=== PATIENT | male | born 1970 | race Caucasian/White ===

== ENCOUNTER 2017-04-07 19:41 | Emergency (ER) | payer OTHER ==
[~2017-04-07] VITALS: Ht 193 cm; Wt 165.1 kg
[~2017-04-07 19:41] MED LIST: BENICAR20 MG PO; FLAGYL250 MG PO; INDOMETHACIN50 MG PO; NO HOME MEDS; Z.0.ADIPEX-P37.5 M1 PO
[2017-04-07] MEDS ORDERED: SODIUM CHLORIDE FLUSH 10 ML SYR INJ PRN (21:00)
[2017-04-07] MEDS ORDERED: DIATRIZOATE MEGL/DIATRIZOA SOD 30 ML BTL PO ONE (21:08)
[2017-04-07 22:32] LABS: BILIRUBIN,URINE NEGATIVE (NEGATIVE); KETONES,URINE NEGATIVE (NEGATIVE); LEUKOCYTE ESTERASE ,URINE 1+ (NEGATIVE); NITRITE,URINE NEGATIVE (NEGATIVE); PROTEIN,URINE DIPSTICK NEGATIVE (NEGATIVE); URINE UROBILINOGEN 0.2 mg/dL (0.2 - 1)
[2017-04-07 22:34] LABS: CLARITY,URINE CLEAR (CLEAR); COLOR,URINE YELLOW (YELLOW)
[2017-04-07 22:48] LABS: BASOPHILS # (AUTO) 0.1 (0.0-0.1); BASOPHILS % 0.7 % (0.0-1.0); EOSINOPHILS # (AUTO) 0.4 (0.0-0.4); EOSINOPHILS % 3.3 % (0.0-6.0); HEMATOCRIT 50.7 % (38.2-49.6); HEMOGLOBIN 16.7 g/dL (14.0-18.0); LYMPHOCYTES # (AUTO) 1.8 (1.0-3.2); LYMPHOCYTES % 17.4 % (18.0-39.1); MEAN CORPUSCULAR HEMOGLOBIN 28.5 pg (28-32); MEAN CORPUSCULAR HGB CONC 32.9 g/dL (31-35); MEAN CORPUSCULAR VOLUME 86.7 fL (81-99); MONOCYTES # (AUTO) 0.7 (0.2-0.8); MONOCYTES % 6.8 % (4.4-11.3); NEUTROPHILS # (AUTO) 7.6 (2.1-6.9); NEUTROPHILS % 71.6 % (38.7-80.0); PLATELET COUNT 333 x10e3/uL (140-360); RED BLOOD COUNT 5.85 x10e6/uL (4.3-5.7); RED CELL DISTRIBUTION WIDTH 12.9 % (11.7-14.4)
[2017-04-07 23:01] LABS: RBC,URINE 0-5 /HPF (0-5)
[2017-04-07 23:02] LABS: EPITHELIAL CELLS,URINE RARE /LPF
[2017-04-07 23:05] LABS: ALBUMIN 3.9 g/dL (3.5-5.0); ALBUMIN/GLOBULIN RATIO 0.9 (0.8-2.0); CREATININE, SERUM 1.39 mg/dL (0.72-1.25)
--- NOTE | 2017-04-08 00:58 | Diagnostic Imaging Report ---
EXAM: CT Abdomen and Pelvis WITH contrast INDICATION: Abdominal pain, diverticulitis COMPARISON: 02/26/2017 and 09/14/2013 TECHNIQUE: Abdomen and pelvis were scanned utilizing a multidetector helical scanner from the lung base to the pubic symphysis after administration of IV contrast. Coronal and sagittal reformations were obtained. Routine protocol was performed. Scan was performed when during portal venous phase. IV CONTRAST: 100 mL of Isovue-300 ORAL CONTRAST: Gastrografin RADIATION DOSE: Total DLP: 1431.09 mGy*cm Estimated effective dose: (DLP x 0.015 x size factor) mSv COMPLICATIONS: None FINDINGS: LINES and TUBES: None. LOWER THORAX: Unremarkable HEPATOBILIARY: No focal hepatic lesions. No biliary ductal dilation. GALLBLADDER: There is layering sludge in the gallbladder No wall thickening. SPLEEN: No splenomegaly. PANCREAS: No focal masses or ductal dilatation. ADRENALS: No adrenal nodules KIDNEYS/URETERS: Kidneys enhance symmetrically. No hydronephrosis. No cystic or solid mass lesions. Multiple bilateral calcific densities in the renal collecting systems, consistent with nephrolithiasis. The largest stone in the right renal collecting system is in the upper pole measuring 1.1 cm in diameter. The largest stone in the left renal collecting system is in the upper pole measuring 0.4 cm. GI TRACT: No abnormal distention, wall thickening, or evidence of bowel obstruction. There are diverticula within the colon without evidence of diverticulitis. Appendix is normal. PELVIC ORGANS/BLADDER: Unremarkable. LYMPH NODES: No lymphadenopathy. VESSELS: There is mild atherosclerotic disease in the aorta and major arterial branches. PERITONEUM / RETROPERITONEUM: No free air or fluid. BONES: There are degenerative changes in the lumbar spine. SOFT TISSUES: Unremarkable. IMPRESSION: 1. Bilateral nonobstructing nephrolithiasis without hydronephrosis, stable when compared with prior examination. 2. Diverticulosis without evidence of diverticulitis. Signed by: Dr. Gorge Paz M.D. on 04/08/2017 12:54 AM
[2017-04-08] MEDS ORDERED: IOPAMIDOL 370 MG/ML 200 ML INFUS..BTL INJ ONE (01:33)
[2017-04-08] MEDS ORDERED: SODIUM CHLORIDE 0.9% 50ML 50 ML ONE (01:33)
== END 2017-04-08 01:23 | disposition home or self-care (01) ==
LOC: ER 19:41
DX: R10.32 Left lower quadrant pain (principal); R11.0 Nausea; K57.31 Diverticulosis of large intestine without perforation or abscess with bleeding; M10.062 Idiopathic gout, left knee; I10 Essential (primary) hypertension
CPT/HCPCS: 36415; 74177; 80053; 81001; 82150; 83690; 85025; 93005; 99284; Q9967

== ENCOUNTER 2017-06-03 09:35 | Emergency (ER) | payer OTHER ==
[~2017-06-03] VITALS: Ht 193 cm; Wt 165.1 kg
--- OUTSIDE RECORDS SUMMARY | 2017-06-03 09:38 | XMS REPORT ---
Author Author [facility] Address Unknown Phone Unavailable Care Team Providers Care Server Security Administrator Name Role Phone POLANCOADELA ARZATE Unavailable Unavailable MÓNICA SERRANO Unavailable Unavailable Problems This patient has no known problems. Allergies, Adverse Reactions, Alerts This patient has no known allergies or adverse reactions. Medications This patient has no known medications. Results Test Description Test Time Test Comments Text Results Atomic Results Result Comments CT ABDOMEN/PELVIS W [place] [address] Patient Name: CARLOS FARMER MR #: [id number] : 1970 Age/Sex: 47/M Req #: [id number] Adm Physician: Ordered by: ROSA GRANDA Report #: [id number] Location: ER Room/Bed: Procedure: [id number] CT/CT ABDOMEN/PELVIS W Exam Date: 04/08/17 Exam Time: 2355 REPORT STATUS: Signed EXAM: CT Abdomen and Pelvis WITH contrast INDICATION: Abdominal pain, diverticulitis COMPARISON: 02/26/2017 and 09/14/2013 TECHNIQUE: Abdomen and pelvis were scanned utilizing a multidetector helical scanner from the lung base to the pubic symphysis after administration of IV contrast. Coronal and sagittal reformations were obtained. Routine protocol was performed. Scan was performed when during portal venous phase. IV CONTRAST: 100 mL of Isovue-300 ORAL CONTRAST: Gastrografin RADIATION DOSE: Total DLP: 1431.09 mGy*cm Estimated effective dose: (DLP x 0.015 x size factor) mSv COMPLICATIONS: None FINDINGS: LINES and TUBES: None. LOWER THORAX: Unremarkable HEPATOBILIARY: No focal hepatic lesions. No biliary ductal dilation. GALLBLADDER: There is layering sludge in the gallbladder No wall thickening. SPLEEN: No splenomegaly. PANCREAS: No focal masses or ductal dilatation. ADRENALS: No adrenal nodules KIDNEYS/URETERS: Kidneys enhance symmetrically. No hydronephrosis. No cystic or solid mass lesions. Multiple bilateral calcific densities in the renal collecting systems, consistent with nephrolithiasis. The largest stone in the right renal collecting system is in the upper pole measuring 1.1 cm in diameter. The largest stone in the left renal collecting system is in the upper pole measuring 0.4 cm. GI TRACT: No abnormal distention, wall thickening, or evidence of bowel obstruction. There are diverticula within the colon without evidence of diverticulitis. Appendix is normal. PELVIC ORGANS/BLADDER: Unremarkable. LYMPH NODES: No lymphadenopathy. VESSELS: There is mild atherosclerotic disease in the aorta and major arterial branches. PERITONEUM / RETROPERITONEUM: No free air or fluid. BONES: There are degenerative changes in the lumbar spine. SOFT TISSUES: Unremarkable. IMPRESSION: 1. Bilateral nonobstructing nephrolithiasis without hydronephrosis, stable when compared with prior examination. 2. Diverticulosis without evidence of diverticulitis. Signed by: Dr. Gorge Paz M.D. on 04/08/2017 12:54 AM Dictated By: GORGE DALY MD Transcribed By: GEN on 04/08/1753 COPY TO: ROSA GRANDA CT ABDOMEN/PELVIS [place] [address] Patient Name: CARLOS FARMER MR #: [id number] : 1970 Age/Sex: 47/M Req #: [id number] Adm Physician: Ordered by: MÓNICA SERRANO MD Report # : [id number] Location: ER Room/Bed: Procedure: [id number] CT/CT ABDOMEN/PELVIS WO Exam Date: 02/26/17 Exam Time: 09 REPORT STATUS: Signed PROCEDURE: CT ABDOMEN AND PELVIS WITHOUT CONTRAST TECHNIQUE: The abdomen and pelvis were scanned utilizing a multidetector helical scanner from the diaphragm to the lesser trochanter after the oral administration of water. No intravenous contrast was administered per renal stone protocol. Coronal and sagittal multiplanar reformations were obtained. COMPARISON: 09/14/2013 INDICATIONS: LEFT FLANK/GROIN PAIN FINDINGS: ABSENCE OF INTRAVENOUS CONTRAST DECREASES SENSITIVITY FOR DETECTION OF FOCAL LESIONS AND VASCULAR PATHOLOGY. LOWER THORAX: Normal. HEPATOBILIARY: No focal hepatic lesion or intrahepatic biliary ductal dilatation. Gallbladder is unremarkable. SPLEEN : No splenomegaly. Small splenule in the inferior aspect of the splenic hilum. PANCREAS: No focal masses or ductal dilatation. ADRENALS: No adrenal nodules. KIDNEYS/URETERS: Progression of renal stone burden relative to 09/14/2013. A large nonobstructing right upper pole calculus measures 10 mm, previously 6 mm. New punctate nonobstructing interpolar right renal calculus is seen on series 3 image 76. Interval increase in size of nonobstructing right lower pole renal calculus, now 7 mm, previously 4 mm. Multiple new nonobstructing left renal calculi measure 4 mm in the upper pole seen on series 3 image 67, 3 mm in the upper pole seen on series 3 image 70, 5 mm in the lower pole seen on series 3 image 85, and 5 mm in the lower pole seen on series 3 image 88. No hydronephrosis. No ureteral or bladder calculi. No perinephric inflammation. PELVIC ORGANS/BLADDER: The urinary bladder is incompletely distended. Coarse prostatic calcifications are again noted. PERITONEUM / RETROPERITONEUM: No ascites. No pneumoperitoneum. LYMPH NODES: No pelvic sidewall, retroperitoneal, or mesenteric lymphadenopathy. VESSELS: Limited evaluation in the absence of intravenous contrast. The abdominal aorta is non-aneurysmal. GI TRACT: The large bowel is notable for multiple diverticula along the descending and sigmoid colon. There is a short segment focus of wall thickening and mesocolic inflammatory change involving an approximately 5 cm segment of the distal descending colon. No nato perforation or drainable fluid collection. Diverticula are noted to a lesser degree along the ascending and transverse colon. The appendix is normal. There is no small bowel dilatation to suggest obstruction. BONES AND SOFT TISSUES: No focal soft tissue abnormalities, though evaluation is somewhat limited secondary to beam hardening artifact from multiple patient contact points with the gantry. No osseous destructive lesions. Mild multilevel degenerative disc changes and facet arthropathy of the lumbar spine. IMPRESSION: Short segment diverticulitis involving the distal descending/proximal sigmoid colon, without nato perforation or drainable fluid collection. Bilateral nonobstructing renal calculi measuring up 1 cm, progressed relative to the examination from August 2013. Dictated by: Dale Her M.D. on 02/26/2017 at 9:51 Electronically approved by: Dale Her M.D. on 02/26/2017 at 9: 51 Dictated By: DALE HER MD [id number] Transcribed By: JS on 02/26/17 0951 COPY TO: MÓNICA SERRANO MD
[2017-06-03] MEDS ORDERED: KETOROLAC TROMETHAMINE 30 MG/ML VIAL IV STA (10:49)
[2017-06-03] MEDS ORDERED: SODIUM CHLORIDE 0.9% 1000ML 1,000 ML IV STA (10:49)
[2017-06-03] MEDS ORDERED: HYDROMORPHONE 1MG/1ML INJ IV STA (10:49)
[2017-06-03] MEDS ORDERED: ONDANSETRON HCL INJ 2 MG/ML VIAL IV STA (10:49)
[2017-06-03 11:05] LABS: BILIRUBIN,URINE NEGATIVE (NEGATIVE); KETONES,URINE NEGATIVE (NEGATIVE); LEUKOCYTE ESTERASE ,URINE NEGATIVE (NEGATIVE); NITRITE,URINE NEGATIVE (NEGATIVE); PROTEIN,URINE DIPSTICK NEGATIVE (NEGATIVE); URINE UROBILINOGEN 0.2 mg/dL (0.2 - 1)
[2017-06-03 11:22] LABS: BASOPHILS # (AUTO) 0.1 (0.0-0.1); BASOPHILS % 0.7 % (0.0-1.0); EOSINOPHILS # (AUTO) 0.6 (0.0-0.4); EOSINOPHILS % 7.1 % (0.0-6.0); HEMATOCRIT 44.8 % (38.2-49.6); HEMOGLOBIN 14.9 g/dL (14.0-18.0); LYMPHOCYTES # (AUTO) 1.6 (1.0-3.2); LYMPHOCYTES % 18.3 % (18.0-39.1); MEAN CORPUSCULAR HEMOGLOBIN 28.4 pg (28-32); MEAN CORPUSCULAR HGB CONC 33.3 g/dL (31-35); MEAN CORPUSCULAR VOLUME 85.5 fL (81-99); MONOCYTES # (AUTO) 0.6 (0.2-0.8); MONOCYTES % 6.5 % (4.4-11.3); NEUTROPHILS # (AUTO) 5.8 (2.1-6.9); NEUTROPHILS % 67.1 % (38.7-80.0); PLATELET COUNT 339 x10e3/uL (140-360); RED BLOOD COUNT 5.24 x10e6/uL (4.3-5.7); RED CELL DISTRIBUTION WIDTH 13.1 % (11.7-14.4)
[2017-06-03 11:24] LABS: COLOR,URINE YELLOW (YELLOW)
[2017-06-03 11:25] LABS: CLARITY,URINE CLEAR (CLEAR); EPITHELIAL CELLS,URINE RARE /LPF
[2017-06-03 11:42] LABS: ALANINE AMINOTRANSFERASE 18 IU/L (0-55); ALBUMIN 3.5 g/dL (3.5-5.0); ALKALINE PHOSPHATASE 92 IU/L (40-150); BLOOD UREA NITROGEN 11 mg/dL (7-26); BUN/CREATININE RATIO 11 (6-25); CALCIUM 9.2 mg/dL (8.4-10.2); CARBON DIOXIDE 26 mmol/L (22-29); CHLORIDE 100 mmol/L (98-107); CREATININE, SERUM 1.01 mg/dL (0.72-1.25); EST GLOMERULAR FILTRATION RATE > 60 ML/MIN (60-); GLUCOSE 97 mg/dL (74-118); SODIUM 133 mmol/L (136-145)
--- NOTE | 2017-06-03 12:44 | Diagnostic Imaging Report ---
EXAM: CT Abdomen and Pelvis WITHOUT contrast INDICATION: \S\STONE PROTOCOL \S\[id number] \S\1200 \S\Y COMPARISON: CT dated 04/07/2017 TECHNIQUE: Abdomen and pelvis were scanned utilizing a multidetector helical scanner from the lung base to the pubic symphysis without administration of IV contrast. Absence of intravenous contrast decreases sensitivity for detection of focal lesions and vascular pathology. Coronal and sagittal reformations were obtained. Routine protocol was performed. IV CONTRAST: None ORAL CONTRAST: Water COMPLICATIONS: None RADIATION DOSE: Total DLP: 1344.96 mGy*cm Estimated effective dose: (DLP x 0.015 x size factor) mSv CTDIvol has been reviewed. It is below the limits set by the Radiation Protocol Committee (RPC). FINDINGS: LINES and TUBES: None. LOWER THORAX: Unremarkable HEPATOBILIARY: Hepatic steatosis. Otherwise, unenhanced liver is unremarkable. No biliary ductal dilation. GALLBLADDER: No radio-opaque stones or sludge. No wall thickening. SPLEEN: No splenomegaly. PANCREAS: No focal masses or ductal dilatation. ADRENALS: No adrenal nodules KIDNEYS/URETERS: No hydronephrosis. Multiple bilateral renal calculi. The largest on the right side is in the superior pole, measuring 1.2 cm. The largest calculus in the left kidney measures 6 mm in the upper and lower poles. GI TRACT: No abnormal distention, wall thickening, or evidence of bowel obstruction. Colonic diverticulosis without evidence of diverticulitis. Appendix is normal. PELVIC ORGANS/BLADDER: Unremarkable. LYMPH NODES: No lymphadenopathy. VESSELS: Unremarkable. PERITONEUM / RETROPERITONEUM: No free air or fluid. BONES: Unremarkable. SOFT TISSUES: Unremarkable. IMPRESSION: 1. Bilateral nonobstructive nephrolithiasis, as detailed above, not significantly changed from prior exam. 2. No evidence of obstructing urolithiasis. 3. Hepatic steatosis. 4. Colonic diverticulosis without evidence of diverticulitis. Signed by: Dr. Lewis Melendrez MD on 06/03/2017 12:41 PM
[2017-06-03] MEDS ORDERED: CYCLOBENZAPRINE5 MG PO (13:39)
[2017-06-03] MEDS ORDERED: TYLENOL WITH C1 EACH PO (13:39)
== END 2017-06-03 13:44 | disposition home or self-care (01) ==
LOC: ER 09:35
DX: M54.9 Dorsalgia, unspecified (principal); R10.9 Unspecified abdominal pain
CPT/HCPCS: 36415; 74176; 80053; 81001; 85025; 99284; J1170; J1885; J2405; J7030

== ENCOUNTER 2017-06-11 08:52 | Emergency (ER) | payer OTHER ==
[~2017-06-11] VITALS: Ht 193 cm; Wt 165.1 kg
[~2017-06-11 08:52] MED LIST changes: +CYCLOBENZAPRINE5 MG PO; +TYLENOL WITH C1 EACH PO
--- OUTSIDE RECORDS SUMMARY | 2017-06-11 08:55 | XMS REPORT | Continuity of Care Document ---
Author Author [facility] Organization [facility] Address [address] [place] [address] Phone Unavailable Care Team Providers Care Industrial Psychologist Name Role Phone RADHA COOK MD PCP Insurance Providers Guarantor Carlos Levi Address [address] [place] [address] Email [email or web address] Policy Number [id number] Subscriber's Name Carlos Levi Relationship 18 Self / Same As Patient Group Number [id number] Effective Date 17 Advance Directives Directive Response Recorded Date/Time Does the patient have an advance directive? No 02/26/17 2:59pm If yes, is advance directive on file with [facility]? No 08/12/14 6:10pm If not on file with [facility] will patient provide a copy? No 06/03/17 11:11am Do you have a Directive to Physician? No 06/03/17 11:11am Do you have a Medical Power of Pediatric Oncologist? No 06/03/17 11:11am Do you have an out of hospital Do Not Resuscitate Order? No 06/03/17 11:11am Do you have any special needs we should be aware of? No 06/03/17 11:11am Do you have a support person here with you today? Yes 06/03/17 11:11am Did patient receive Notice of Privacy Practices? Yes 06/03/17 11:11am Did patient receive patient rights and responsibilities? Yes 06/03/17 11:11am Problems Medical Problem Onset Date Status Chest pain 08/12/2014 Acute Chest pain 08/14/2014 Acute Medications Current Home Medications Medication Dose Units Route Directions Days Qty Instructions Start Date Acetaminophen With Codeine (Tylenol With Codeine #3 Tablet) 1 Each Tablet 300 Mg Oral Every 6 Hours as needed for Pain Cyclobenzaprine Hcl (Flexeril) 5 Mg Tablet 10 Mg Oral Three Times A Day as needed for Pain 7 Days Indomethacin 50 Mg Capsule 50 Mg Oral As Needed Metronidazole (Flagyl) 250 Mg Tablet 500 Mg Oral Every 8 Hours 21 Past Home Medications Medication Directions Ordered Status No Home Meds , Discontinued Olmesartan Medoxomil (Benicar) 20 Mg Tablet, 40 Mg Oral Daily Discontinued Phentermine Hcl (Adipex-P) 37.5 Mg Tablet, 1.5 Tab Oral Daily Discontinued Social History Social History Problem Response Recorded Date/Time Onset Date Status Hx Psychiatric Problems Y - ptsd 02/26/2017 2:59pm Not Applicable Not Applicable Hx Eating Disorder No 02/26/2017 2:59pm Not Applicable Not Applicable Hx Substance Use Disorder No 02/26/2017 2:59pm Not Applicable Not Applicable Hx Depression No 02/26/2017 2:59pm Not Applicable Not Applicable Hx Alcohol Use Y - social drinker 02/26/2017 2:59pm Not Applicable Not Applicable Hx Substance Use Treatment No 02/26/2017 2:59pm Not Applicable Not Applicable Hx Physical Abuse No 02/26/2017 2:59pm Not Applicable Not Applicable Hospital Discharge Instructions No hospital discharge instruction information available. Plan of Care Discharge Date 06/03/17 1:44pm Disposition HOME, SELF-CARE Condition at Discharge Stable Instructions/Education Provided Back Pain Forms Provided Work/School Excuse Prescriptions See Medication Section Referrals RADHA COOK MD Address: [address] [address] SB FONG MD Address: [address] [place] [address] [address] [place] [address] Additional Instructions/Education FOLLOW UP WITH YOUR DOCTOR IN 1-2 DAYS WITHOUT FAIL RETURN TO ED NEEDED Functional Status No functional status information available. Allergies, Adverse Reactions, Alerts No known allergies. Immunizations No immunization information available. Vital Signs Acute Vital Signs Vital Response Date/Time Temperature (Fahrenheit) 97.5 degrees F (97.6 - 99.5) 03/01/2017 8:08am Pulse Pulse Rate (adult) 62 bpm (60 - 90) 03/01/2017 8:08am Respiratory Rate 20 bpm (12 - 24) 03/01/2017 8:08am Blood Pressure 110/72 mm Hg 03/01/2017 8:08am Height 6 ft 4 in 06/03/2017 9:37am Weight 364 lb 06/03/2017 9:37am Body Mass Index 44.3 kg/m^2 06/03/2017 9:37am Results Laboratory Results Test Name Result Units Flags Reference Collection Date/Time Result Date/ Time Comments Amylase Level 126 U/L H 25-125 04/07/2017 10:30pm 04/07/2017 11:24pm Lipase 81 U/L H 8-78 04/07/2017 10:30pm 04/07/2017 11:24pm White Blood Count 8.65 x10e3/uL 4.8-10.8 06/03/2017 11:15am 06/03/2017 11:24am Red Blood Count 5.24 x10e6/uL 4.3-5.7 06/03/2017 11:15am 06/03/2017 11: 24am Hemoglobin 14.9 g/dL 14.0-18.0 06/03/2017 11:15am 06/03/2017 11:24am Hematocrit 44.8 % 38.2-49.6 06/03/2017 11:15am 06/03/2017 11:24am Mean Corpuscular Volume 85.5 fL 81-99 06/03/2017 11:1506/03/2017 11: 24am Mean Corpuscular Hemoglobin 28.4 pg 28-32 06/03/2017 11:15am 2017 11:24am Mean Corpuscular Hemoglobin Concent 33.3 g/dL 31-35 06/03/2017 11:15am 06/03/2017 11:24am Red Cell Distribution Width 13.1 % 11.7-14.4 06/03/2017 11:15am 2017 11:24am Platelet Count 339 x10e3/uL 140-360 06/03/2017 11:15am 06/03/2017 11: 24am Neutrophils (%) (Auto) 67.1 % 38.7-80.0 06/03/2017 11:15am 06/03/2017 11:24am Lymphocytes (%) (Auto) 18.3 % 18.0-39.1 06/03/2017 11:15am 06/03/2017 11:24am Monocytes (%) (Auto) 6.5 % 4.4-11.3 06/03/2017 11:15am 06/03/2017 11: 24am Eosinophils (%) (Auto) 7.1 % H 0.0-6.0 06/03/2017 11:1506/03/2017 11: 24am Basophils (%) (Auto) 0.7 % 0.0-1.0 06/03/2017 11:1506/03/2017 11: 24am IM GRANULOCYTES % 0.3 % 0.0-1.0 06/03/2017 11:1506/03/2017 11:24am Neutrophils # (Auto) 5.8 2.1-6.9 06/03/2017 11:15am 06/03/2017 11: 24am Lymphocytes # (Auto) 1.6 1.0-3.2 06/03/2017 11:15am 06/03/2017 11: 24am Monocytes # (Auto) 0.6 0.2-0.8 06/03/2017 11:15am 06/03/2017 11:24am Eosinophils # (Auto) 0.6 H 0.0-0.4 06/03/2017 11:15am 06/03/2017 11: 24am Basophils # (Auto) 0.1 0.0-0.1 06/03/2017 11:15am 06/03/2017 11:24am Absolute Immature Granulocyte (auto 0.03 x10e3/uL 0-0.1 06/03/2017 11: 1506/03/2017 11:24am Urine Color YELLOW YELLOW 06/03/2017 10:44am 06/03/2017 11:25am Urine Clarity CLEAR CLEAR 06/03/2017 10:44am 06/03/2017 11:25am Urine Specific [place] 1.015 1.010-1.025 06/03/2017 10:44am 2017 11:25am Urine pH 5 5 - 7 06/03/2017 10:44am 06/03/2017 11:25am Urine Leukocyte Esterase NEGATIVE NEGATIVE 06/03/2017 10:44am 2017 11:25am Urine Nitrite NEGATIVE NEGATIVE 06/03/2017 10:44am 06/03/2017 11: 25am Urine Protein NEGATIVE NEGATIVE 06/03/2017 10:44am 06/03/2017 11: 25am Urine Glucose (UA) NEGATIVE NEGATIVE 06/03/2017 10:44am 06/03/2017 11 :25am Urine Ketones NEGATIVE NEGATIVE 06/03/2017 10:44am 06/03/2017 11: 25am Urine Urobilinogen 0.2 mg/dL 0.2 - 1 06/03/2017 10:44am 06/03/2017 11: 25am Urine Bilirubin NEGATIVE NEGATIVE 06/03/2017 10:44am 06/03/2017 11: 25am Urine Blood NEGATIVE NEGATIVE 06/03/2017 10:44am 06/03/2017 11:25am Urine WBC NONE /HPF 0-5 06/03/2017 10:44am 06/03/2017 11:25am Urine RBC NONE /HPF 0-5 06/03/2017 10:44am 06/03/2017 11:25am Urine Bacteria NONE /HPF NONE 06/03/2017 10:44am 06/03/2017 11:25am Urine Epithelial Cells RARE /LPF NONE 06/03/2017 10:44am 06/03/2017 11: 25am Sodium Level 133 mmol/L L 136-145 06/03/2017 10:44am 06/03/2017 11:44am Potassium Level 4.0 mmol/L 3.5-5.1 06/03/2017 10:44am 06/03/2017 11: 44am Chloride Level 100 mmol/L 98-107 06/03/2017 10:44am 06/03/2017 11:44am Carbon Dioxide Level 26 mmol/L 22-06/03/2017 10:44am 06/03/2017 11: 44am Anion Gap 11.0 mmol/L 8-16 06/03/2017 10:44am 06/03/2017 11:44am Blood Urea Nitrogen 11 mg/dL 7-06/03/2017 10:44am 06/03/2017 11: 44am Creatinine 1.01 mg/dL 0.72-1.25 06/03/2017 10:44am 06/03/2017 11:44am BUN/Creatinine Ratio 11 6-25 06/03/2017 10:44am 06/03/2017 11:44am Estimat Glomerular Filtration Rate > 60 ML/MIN 60- 06/03/2017 10:44am 06/03/2017 11:44am Ranges were taken from the National Kidney Disease Education Program and the National Kidney Foundation literature. Reference ranges: 60 or greater: Normal 16-59 (for 3 consecutive months): Chronic kidney disease 15 or less: Kidney failure Glucose Level 97 mg/dL 74-118 06/03/2017 10:44am 06/03/2017 11:44am Calcium Level 9.2 mg/dL 8.4-10.2 06/03/2017 10:44am 06/03/2017 11:44am Total Bilirubin 0.5 mg/dL 0.2-1.2 06/03/2017 10:44am 06/03/2017 11: 44am Aspartate Amino Transf (AST/SGOT) 16 IU/L 5-34 06/03/2017 10:44am 06/03 11:44am Alanine Aminotransferase (ALT/SGPT) 18 IU/L 0-55 06/03/2017 10:44am 07/2017 11:44am Total Protein 7.1 g/dL 6.5-8.1 06/03/2017 10:44am 06/03/2017 11:44am Albumin 3.5 g/dL 3.5-5.0 06/03/2017 10:44am 06/03/2017 11:44am Globulin 3.6 g/dL H 2.3-3.5 06/03/2017 10:44am 06/03/2017 11:44am Albumin/Globulin Ratio 1.0 0.8-2.0 06/03/2017 10:44am 06/03/2017 11: 44am Alkaline Phosphatase 92 IU/L 40-150 06/03/2017 10:44am 06/03/2017 11: 44am Procedures Procedure Status Date Provider(s) CT of abdomen and pelvis without contrast Active 02/26/17 MÓNICA SERRANO MD Computed tomography of abdomen and pelvis with contrast Active 04/07/[address] of abdomen and pelvis without contrast Active 06/03/17 ALICJA ROSE SALES REPRESENTATIVE SUPERVISOR Encounters Encounter Location Arrival/Admit Date Discharge/Depart Date Attending Provider Departed Emergency Room [facility] 06/03/17 9:35am 1:44pm MÓNICA SERRANO MD Departed Emergency Room [facility] 04/07/17 7:41pm 1:23am ADELA POLANCO MD Discharged Inpatient [facility] 02/26/17 11:33am 8:42am RADHA COOK MD
[2017-06-11] MEDS ORDERED: ONDANSETRON HCL INJ 2 MG/ML VIAL IV STA (09:13)
[2017-06-11] MEDS ORDERED: HYDROMORPHONE 1MG/1ML INJ IV STA (09:13)
[2017-06-11] MEDS ORDERED: SODIUM CHLORIDE 0.9% 1000ML 1,000 ML IV SCH (09:15)
[2017-06-11 09:21] LABS: BASOPHILS # (AUTO) 0.1 (0.0-0.1); BASOPHILS % 0.7 % (0.0-1.0); EOSINOPHILS # (AUTO) 0.3 (0.0-0.4); EOSINOPHILS % 4.4 % (0.0-6.0); HEMATOCRIT 44.8 % (38.2-49.6); HEMOGLOBIN 14.8 g/dL (14.0-18.0); LYMPHOCYTES # (AUTO) 1.6 (1.0-3.2); LYMPHOCYTES % 21.6 % (18.0-39.1); MEAN CORPUSCULAR HEMOGLOBIN 28.5 pg (28-32); MEAN CORPUSCULAR VOLUME 86.3 fL (81-99); MONOCYTES # (AUTO) 0.4 (0.2-0.8); NEUTROPHILS # (AUTO) 4.9 (2.1-6.9); NEUTROPHILS % 67.2 % (38.7-80.0); PLATELET COUNT 356 x10e3/uL (140-360); RED BLOOD COUNT 5.19 x10e6/uL (4.3-5.7)
[2017-06-11 09:35] LABS: ALANINE AMINOTRANSFERASE 21 IU/L (0-55); ALBUMIN 3.7 g/dL (3.5-5.0); ALKALINE PHOSPHATASE 111 IU/L (40-150); ANION GAP 11.3 mmol/L (8-16); BLOOD UREA NITROGEN 14 mg/dL (7-26); BUN/CREATININE RATIO 13 (6-25); CALCIUM 8.9 mg/dL (8.4-10.2); CARBON DIOXIDE 26 mmol/L (22-29); CHLORIDE 105 mmol/L (98-107); CREATININE, SERUM 1.11 mg/dL (0.72-1.25); EST GLOMERULAR FILTRATION RATE > 60 ML/MIN (60-); GLUCOSE 120 mg/dL (74-118); POTASSIUM 4.3 mmol/L (3.5-5.1); SODIUM 138 mmol/L (136-145)
[2017-06-11 09:37] LABS: BILIRUBIN,URINE NEGATIVE (NEGATIVE); CLARITY,URINE CLEAR (CLEAR); COLOR,URINE YELLOW (YELLOW); KETONES,URINE NEGATIVE (NEGATIVE); LEUKOCYTE ESTERASE ,URINE NEGATIVE (NEGATIVE); NITRITE,URINE NEGATIVE (NEGATIVE); PROTEIN,URINE DIPSTICK NEGATIVE (NEGATIVE); URINE UROBILINOGEN 0.2 mg/dL (0.2 - 1)
[2017-06-11 09:50] LABS: EPITHELIAL CELLS,URINE RARE /LPF
--- NOTE | 2017-06-11 10:29 | Diagnostic Imaging Report ---
PROCEDURE: CT ABDOMEN AND PELVIS WITHOUT CONTRAST COMPARISON:[facility], CT, CT ABDOMEN/PELVIS WO, 06/03/2017, 12:12. INDICATIONS:Right flank pain TECHNIQUE: Stone protocol Volumetric CT abdomen and pelvis. No intravenous contrast. Multiplanar reformatted images. DLP: 1430.08 FINDINGS: Clear lung bases. No pleural effusions. Normal heart size. Liver: Craniocaudal span 17.5 cm. Mild diffuse low attenuation. Otherwise, normal. Gallbladder: Normal Pancreas: Normal Spleen: Normal Adrenal glands: Normal Urinary bladder: Normal. Decompressed. Prostate and seminal vesicles: Normal Kidneys: Right: 4 stones, the largest at the superior pole measuring 1.25 cm in maximal transverse diameter. No hydronephrosis. Normal ureter. Left: At least 5 stones, the largest measuring 0.5 cm in diameter. No hydronephrosis. Normal ureter. Bowel: Normal caliber. Descending and sigmoid diverticulosis. Normal appendix. Peritoneum: Normal Vasculature: Normal caliber. Lymph nodes: Normal Skeleton: Intact. L5-S1 degenerative disc disease with near complete loss of disc space height. Patent neural foramen. Soft tissues: Normal CONCLUSION: 1. Bilateral nonobstructive nephrolithiasis unchanged from June 03. 2. Hepatic steatosis. 3. Diverticulosis. Dictated by: Jamir Del Rio M.D. on 06/11/2017 at 10:29 Electronically approved by: Jamir Del Rio M.D. on 06/11/2017 at 10:29
[2017-06-11 11:31] VITALS: BP 126/73
== END 2017-06-11 11:48 | disposition home or self-care (01) ==
LOC: ER 08:52
DX: R10.31 Right lower quadrant pain (principal); R11.0 Nausea; M54.5 Low back pain; I10 Essential (primary) hypertension; K92.89 Other specified diseases of the digestive system
CPT/HCPCS: 36415; 74176; 80053; 81001; 85025; 99284; J1170; J2405; J7030

== ENCOUNTER 2017-07-26 09:00 | Outpatient (RCR) | payer OTHER | END 2017-07-29 | LOC: PT 09:00 | PROVIDERS: ATTEND Neurological Surgery | DX: M51.17 Intervertebral disc disorders with radiculopathy, lumbosacral region (principal); M62.81 Muscle weakness (generalized) ==

== ENCOUNTER 2017-08-16 09:59 | Outpatient (RCR) | payer OTHER | END 2017-08-29 | LOC: PT 09:59 | PROVIDERS: ATTEND Neurological Surgery | DX: M51.17 Intervertebral disc disorders with radiculopathy, lumbosacral region (principal); M62.81 Muscle weakness (generalized) ==

== ENCOUNTER 2017-12-09 09:28 | Observation (INO) | payer OTHER ==
[~2017-12-09] VITALS: Ht 193 cm; Wt 161.1 kg
[2017-12-09] MEDS ORDERED: ONDANSETRON HCL INJ 2 MG/ML VIAL IV STA (09:49)
[2017-12-09] MEDS ORDERED: HYDROMORPHONE 1MG/1ML INJ IV PRN (10:00)
[2017-12-09] MEDS ORDERED: HYDROMORPHONE 20MG/ NS 100ML IV PRN (10:00)
[2017-12-09] MEDS ORDERED: HYDROMORPHONE 1MG/1ML 50ML SYR IV PRN (10:00)
[2017-12-09 10:34] LABS: BASOPHILS # (AUTO) 0.1 (0.0-0.1); BASOPHILS % 0.4 % (0.0-1.0); EOSINOPHILS # (AUTO) 0.1 (0.0-0.4); HEMATOCRIT 46.1 % (38.2-49.6); HEMOGLOBIN 15.1 g/dL (14.0-18.0); LYMPHOCYTES # (AUTO) 1.9 (1.0-3.2); LYMPHOCYTES % 14.9 % (18.0-39.1); MEAN CORPUSCULAR HEMOGLOBIN 28.7 pg (28-32); MEAN CORPUSCULAR HGB CONC 32.8 g/dL (31-35); MEAN CORPUSCULAR VOLUME 87.5 fL (81-99); MONOCYTES # (AUTO) 0.6 (0.2-0.8); MONOCYTES % 5.1 % (4.4-11.3); NEUTROPHILS # (AUTO) 9.9 (2.1-6.9); NEUTROPHILS % 78.1 % (38.7-80.0); PLATELET COUNT 327 x10e3/uL (140-360); RED BLOOD COUNT 5.27 x10e6/uL (4.3-5.7); RED CELL DISTRIBUTION WIDTH 12.9 % (11.7-14.4)
[2017-12-09 10:47] LABS: INR 1.09; PROTHROMBIN TIME 13.3 seconds (11.9-14.5)
[2017-12-09 10:48] LABS: PARTIAL THROMBOPLASTIN TIME 31.3 seconds (23.8-35.5)
[2017-12-09] MEDS ORDERED: OXYCODON-ACETA1 EAC2 PO (11:06)
[2017-12-09 11:13] LABS: ALANINE AMINOTRANSFERASE 17 IU/L (0-55); ALBUMIN 3.4 g/dL (3.5-5.0); ALBUMIN/GLOBULIN RATIO 0.9 (0.8-2.0); ALKALINE PHOSPHATASE 107 IU/L (40-150); ANION GAP 15.3 mmol/L (8-16); BLOOD UREA NITROGEN 12 mg/dL (7-26); BUN/CREATININE RATIO 11 (6-25); CALCIUM 9.8 mg/dL (8.4-10.2); CARBON DIOXIDE 24 mmol/L (22-29); CHLORIDE 104 mmol/L (98-107); CREATININE, SERUM 1.06 mg/dL (0.72-1.25); EST GLOMERULAR FILTRATION RATE > 60 ML/MIN (60-); GLUCOSE 114 mg/dL (74-118); POTASSIUM 4.3 mmol/L (3.5-5.1); SODIUM 139 mmol/L (136-145)
[2017-12-09] MEDS ORDERED: KETOROLAC TROMETHAMINE 30 MG/ML VIAL IV STA (12:29)
[2017-12-09] MEDS ORDERED: HYDROMORPHONE 1MG/1ML INJ IV ONE (14:17)
[2017-12-09] MEDS ORDERED: TIZANIDINE HCL4 MG PO (16:21)
[2017-12-09] MEDS ORDERED: DICLOFENAC SODI75 MG PO (16:21)
[2017-12-09] MEDS: HYDROMORPHONE 1MG/1ML INJ IV PRN ×3 (16:35→23:30)
[2017-12-09] MEDS: SODIUM CHLORIDE 0.9% 1000ML 1,000 ML IV SCH (16:35)
[2017-12-09 17:30] VITALS: BP 147/95
[2017-12-09 18:01] VITALS: BP 147/95
[2017-12-09] MEDS: ONDANSETRON HCL INJ 2 MG/ML VIAL IV PRN (19:50)
[2017-12-09 20:00] VITALS: BP 128/64
--- NOTE | 2017-12-09 20:42 | Diagnostic Imaging Report ---
Right complete knee. CPT CODE: 17550. INDICATION: Gout, 3 weeks of pain, swelling, and fluid around the knee COMPARISON: None FINDINGS: An enchondroma in the proximal tibial metadiaphysis is stable. There is mild prominence of the tibial spines and trace medial compartment narrowing. Mild patellofemoral compartment narrowing and posterior patellar osteophytosis. No acute fracture or dislocation. Moderate size joint effusion is present. IMPRESSION: Mild degenerative changes of the knee with moderate suprapatellar joint effusion. Signed by: Dr. Dakota Chang MD on 12/09/2017 8:39 PM
[2017-12-09 21:00] VITALS: BP 128/64
[2017-12-10] VITALS (7 sets, daily range): BP systolic 107–135; BP diastolic 57–80
[2017-12-10] MEDS: HYDROMORPHONE 1MG/1ML INJ IV PRN ×7 (02:40→21:29)
[2017-12-10] MEDS: ONDANSETRON HCL INJ 2 MG/ML VIAL IV PRN ×5 (02:40→18:20)
[2017-12-10] MEDS: SODIUM CHLORIDE 0.9% 1000ML 1,000 ML IV SCH ×3 (02:46→21:29)
--- NOTE | 2017-12-10 08:27 | Diagnostic Imaging Report ---
TECHNIQUE: Magnetic resonance imaging of the RIGHT KNEE was performed WITHOUT injected contrast. HISTORY: Knee pain COMPARISON: None available. FINDINGS: LIGAMENTS AND TENDONS: ACL: Intact PCL: Intact Collateral ligaments: Intact Iliotibial band: Unremarkable Popliteal tendon: Intact Extensor mechanism: Proximal patellar tendinosis with thickening. No tear. JOINT: Menisci: Medial: Horizontal tear body and posterior horn with flipped fragment to the meniscotibial recess coronal image 13. Lateral: Intact without tear. Articular Cartilage: Medial Compartment: Partial-thickness cartilage loss Lateral Compartment: No focal defect. Patellofemoral Compartment: No focal defect. Joint Fluid: Moderate joint effusion. BONE: Proximal tibia 2.4 cm enchondroma No acute fracture. SOFT TISSUES: Otherwise, unremarkable. IMPRESSION: Medial meniscus horizontal tear body and posterior horn with small flipped fragment in the meniscotibial recess. Medial compartment partial thickness cartilage loss. Proximal tibia 2.4 cm enchondroma Signed by: Dr. Gordo Santos M.D. on 12/10/2017 8:23 AM
[2017-12-10 14:20] LABS: BODY FLUID APPEARANCE SL.CLOUDY; BODY FLUID COLOR YELLOW; BODY FLUID TYPE SYNOVIAL
[2017-12-10 15:35] LABS: RBC,BODY FLUID 60 cells/uL; WBC,BODY FLUID 1977 cells/uL
[2017-12-10 16:55] LABS: LYMPHOCYTES,BODY FLUID 7 %; MONO/MACROPHG,BODY FLUID 8 %; NEUTROPHILS,BODY FLUID 85 %
[2017-12-11] VITALS (9 sets, daily range): BP systolic 133–152; BP diastolic 65–93
[2017-12-11] MEDS: HYDROMORPHONE 1MG/1ML INJ IV PRN ×8 (00:20→21:30)
[2017-12-11] MEDS: ONDANSETRON HCL INJ 2 MG/ML VIAL IV PRN ×4 (00:20→16:20)
[2017-12-11] MEDS: SODIUM CHLORIDE 0.9% 1000ML 1,000 ML IV SCH ×2 (06:29→17:03)
[2017-12-11] MEDS: BISACODYL 5 MG TAB EC PO SCH ×3 (10:00→17:47)
[2017-12-11] MEDS ORDERED: BISACODYL 5 MG TAB EC PO SCH (12:00)
[2017-12-11] MEDS ORDERED: METHYLPREDNISOLONE SOD SUCC 125 MG/2ML VIAL IV ONE (15:30)
[2017-12-11] MEDS: INDOMETHACIN 25 MG CAP PO SCH ×2 (17:00→21:26)
[2017-12-12] MEDS: BISACODYL 5 MG TAB EC PO SCH ×2 (00:25→05:11)
[2017-12-12 00:40] VITALS: BP 142/87
[2017-12-12] MEDS: ONDANSETRON HCL INJ 2 MG/ML VIAL IV PRN ×2 (00:44→06:50)
[2017-12-12] MEDS: HYDROMORPHONE 1MG/1ML INJ IV PRN ×3 (00:46→06:55)
[2017-12-12] MEDS: SODIUM CHLORIDE 0.9% 1000ML 1,000 ML IV SCH (03:20)
[2017-12-12 05:33] VITALS: BP 137/85
[2017-12-12] MEDS ORDERED: METHYLPREDNISOLONE SOD SUCC 40 MG/ML VIAL IV ONE (06:00)
[2017-12-12 07:24] VITALS: BP 137/85
[2017-12-12] MEDS ORDERED: PREDNISONE20 MG PO (07:32)
[2017-12-12] MEDS ORDERED: INDOMETHACIN1 MG PO (07:32)
[2017-12-12 08:17] VITALS: BP 140/82
[2017-12-12] MEDS: INDOMETHACIN 25 MG CAP PO SCH (08:59)
[2017-12-12] MEDS ORDERED: PANTOPRAZOLE SO40 MG PO (09:12)
== END 2017-12-12 09:27 | disposition home or self-care (01) ==
LOC: ER 09:28 → ERHOLD 15:03 → MED/SURG2 17:24
PROVIDERS: ADMIT Internal Medicine; ATTEND Internal Medicine
DX: M10.9 Gout, unspecified (principal); K27.9 Peptic ulcer, site unspecified, unspecified as acute or chronic, without hemorrhage or perforation; K57.92 Diverticulitis of intestine, part unspecified, without perforation or abscess without bleeding; Z87.442 Personal history of urinary calculi; M25.461 Effusion, right knee; K21.9 Gastro-esophageal reflux disease without esophagitis; Z82.49 Family history of ischemic heart disease and other diseases of the circulatory system
CPT/HCPCS: 20610; 36415 ×2; 73562; 73721; 80053; 85025; 85610; 85730; 87070; 87071; 87075; 87102; 87116; 87205; 87206 ×2; 89051; 89060; 93971; 96361; 99284; G0378 ×4; J1170 ×4; J1885; J2405 ×4; J2920; J2930; J7030 ×4

== ENCOUNTER 2017-12-30 09:11 | Observation (INO) | payer OTHER ==
[~2017-12-30] VITALS: Ht 193 cm; Wt 159.7 kg
[~2017-12-30 09:11] MED LIST changes: +DICLOFENAC SODI75 MG PO; +INDOMETHACIN1 MG PO; +OXYCODON-ACETA1 EAC2 PO; +PANTOPRAZOLE SO40 MG PO; +PREDNISONE20 MG PO; +SUCRALFATE1 GM PO; +TIZANIDINE HCL4 MG PO
[2017-12-30] MEDS ORDERED: ONDANSETRON HCL 4 MG ORAL DISINTEGRATING TAB ONE (09:40)
[2017-12-30] MEDS ORDERED: ONDANSETRON HCL 4 MG ORAL DISINTEGRATING TAB SL ONE (09:45)
[2017-12-30] MEDS ORDERED: HYDROCODONE/APAP 5MG-325MG TAB PO ONE (09:45)
[2017-12-30 10:04] LABS: BASOPHILS # (AUTO) 0.1 (0.0-0.1); BASOPHILS % 0.3 % (0.0-1.0); EOSINOPHILS % 0.2 % (0.0-6.0); HEMATOCRIT 36.3 % (38.2-49.6); HEMOGLOBIN 12.4 g/dL (14.0-18.0); LYMPHOCYTES # (AUTO) 1.5 (1.0-3.2); LYMPHOCYTES % 8.7 % (18.0-39.1); MEAN CORPUSCULAR HEMOGLOBIN 29.2 pg (28-32); MEAN CORPUSCULAR HGB CONC 34.2 g/dL (31-35); MEAN CORPUSCULAR VOLUME 85.4 fL (81-99); MONOCYTES # (AUTO) 0.9 (0.2-0.8); MONOCYTES % 5.4 % (4.4-11.3); NEUTROPHILS # (AUTO) 14.8 (2.1-6.9); PLATELET COUNT 392 x10e3/uL (140-360); RED BLOOD COUNT 4.25 x10e6/uL (4.3-5.7); RED CELL DISTRIBUTION WIDTH 13.2 % (11.7-14.4)
[2017-12-30 10:12] LABS: ALANINE AMINOTRANSFERASE 12 IU/L (0-55); ALBUMIN 3.3 g/dL (3.5-5.0); ALBUMIN/GLOBULIN RATIO 0.8 (0.8-2.0); ALKALINE PHOSPHATASE 82 IU/L (40-150); ANION GAP 14.8 mmol/L (8-16); BLOOD UREA NITROGEN 9 mg/dL (7-26); BUN/CREATININE RATIO 8 (6-25); CALCIUM 9.2 mg/dL (8.4-10.2); CARBON DIOXIDE 22 mmol/L (22-29); CHLORIDE 101 mmol/L (98-107); CREATININE, SERUM 1.09 mg/dL (0.72-1.25); EST GLOMERULAR FILTRATION RATE > 60 ML/MIN (60-); GLUCOSE 148 mg/dL (74-118); POTASSIUM 3.8 mmol/L (3.5-5.1); SODIUM 134 mmol/L (136-145)
[2017-12-30] MEDS ORDERED: HYDROMORPHONE 1MG/1ML INJ IV PRN (11:45)
[2017-12-30] MEDS ORDERED: VANCOMYCIN 1GM/NS 250 ML 250 ML IV SCH (12:00)
[2017-12-30] MEDS: HYDROMORPHONE 2MG/ML 2 MG/ML ML IV PRN ×3 (12:31→20:20)
[2017-12-30] MEDS: ONDANSETRON HCL INJ 2 MG/ML VIAL IV PRN ×3 (12:31→20:20)
[2017-12-30] MEDS: PIPER-TAZ 3.375 GM 50 ML IV SCH ×2 (12:32→22:18)
[2017-12-30 13:30] VITALS: BP 128/69
[2017-12-30] MEDS: SODIUM CHLORIDE 0.9% 1000ML 1,000 ML IV SCH ×2 (13:45→19:36)
--- NOTE | 2017-12-30 13:56 | Diagnostic Imaging Report ---
Exam: Bilateral feet 3 views each History: Pain Comparison: None. Findings: Right foot: No acute, displaced fracture or dislocation. Appropriate interval between the medial cuneiform and second metatarsal base in keeping with intact Lisfranc ligament. Mild first metatarsophalangeal and mid foot degenerative changes. Soft tissues are unremarkable. Left foot: No acute, displaced fracture or dislocation. Appropriate alignment between the medial cuneiform and second metatarsal base in keeping with an intact Lisfranc ligament. Mild midfoot degenerative changes. No focal soft tissue abnormalities. Impression: No acute osseous abnormalities. Right first metatarsophalangeal and scattered bilateral mid foot degenerative joint disease. Bilateral degenerative calcaneal spur. Signed by: Dr. Lefty Harrison M.D. on 12/30/2017 1:52 PM
[2017-12-30 14:00] VITALS: BP 128/69
[2017-12-30 14:37] VITALS: BP 128/69
[2017-12-30 16:03] VITALS: BP 131/74
[2017-12-30] MEDS ORDERED: ACETAMINOPHEN 325 MG TAB PO PRN (19:45)
[2017-12-30 20:00] VITALS: BP 128/60
[2017-12-30] MEDS ORDERED: METHYLPREDNISOLONE SOD SUCC 40 MG/ML VIAL IV ONE (20:00)
--- NOTE | 2017-12-30 20:57 | History and Physical ---
HISTORY OF PRESENT ILLNESS: This is a 47-year-old gentleman with a history of recent Dawna-Wilson tear repair. He was in his usual state of health until the patient started to have lower extremity pain. The patient recently had bilateral lower extremity pain. The patient recently had an Achilles tendon repair, and also had a Dawna-Wilson tear repair too. About a week ago, the patient started with pain in the lower extremities about 2 days prior to admission. It started gradually in both feet, right foot more than the left foot. According to the patient, he could not ambulate without extreme amount of tenderness. PAST MEDICAL HISTORY: History of reflux esophagitis and history of recent Dawna-Wilson tear. The patient has history of impaired glucose tolerance. MEDICATIONS: Please see medication reconciliation sheet. ALLERGIES: SEE NURSES' NOTES. REVIEW OF SYSTEMS: Negative for chest pain, no shortness of breath, no nausea, vomiting, diarrhea, no constipation, no rectal bleeding, no hematochezia, no hematemesis. PHYSICAL EXAMINATION VITAL SIGNS: The patient is running low-grade fever of 99.2. Blood pressure is 131/74. Pulse 92. GENERAL: The patient is alert and oriented x3. HEENT: Normocephalic, atraumatic. Pupils are reactive to light and accommodation. CVS: S1 and S2 normal. Regular rate and rhythm. ABDOMEN: Nontender, nondistended. EXTREMITIES: Right lower extremity with extreme amount of pain. Tenderness in the metatarsals, right and left, and tender in the calf area on the right side. The patient did have an Achilles' tendon repair. LABORATORY DATA: Initial 134, glucose 148, uric acid 9, albumin 3.3, hemoglobin 4.0. Liver enzymes were normal. Hematology: White count 17.35, neutrophil count 85,000. IMAGING: Shows foot x-ray with degenerative spurs and also right metatarsophalangeal joint and scattered bilateral mid foot degenerative changes. ASSESSMENT: Elevated white count, probably reactive in nature with elevated neutrophil count. Will put the patient on vancomycin and Zosyn. With the reactive changes on x-ray, will give him one dose of Solu-Medrol to assess response to it. Will continue to monitor the patient. Will consult Dr. Chamberlain for his right lower extremity swelling. Will continue monitoring the patient tomorrow. Further recommendations depending on clinical course. Job#: [id number] GH
[2017-12-30 21:39] VITALS: BP 128/60
[2017-12-31] VITALS (8 sets, daily range): BP systolic 109–152; BP diastolic 61–91
[2017-12-31] MEDS: HYDROMORPHONE 2MG/ML 2 MG/ML ML IV PRN ×6 (00:20→22:15)
[2017-12-31] MEDS: ONDANSETRON HCL INJ 2 MG/ML VIAL IV PRN ×6 (00:20→22:15)
[2017-12-31] MEDS: VANCOMYCIN 1GM/NS 250 ML 250 ML IV SCH ×2 (01:56→13:34)
[2017-12-31] MEDS: SODIUM CHLORIDE 0.9% 1000ML 1,000 ML IV SCH ×3 (04:25→19:42)
[2017-12-31 04:53] LABS: BASOPHILS % 0.1 % (0.0-1.0); HEMATOCRIT 34.8 % (38.2-49.6); HEMOGLOBIN 11.5 g/dL (14.0-18.0); LYMPHOCYTES # (AUTO) 0.5 (1.0-3.2); LYMPHOCYTES % 3.3 % (18.0-39.1); MEAN CORPUSCULAR VOLUME 87.9 fL (81-99); MONOCYTES # (AUTO) 0.3 (0.2-0.8); MONOCYTES % 1.9 % (4.4-11.3); NEUTROPHILS # (AUTO) 14.7 (2.1-6.9); NEUTROPHILS % 94.3 % (38.7-80.0); PLATELET COUNT 326 x10e3/uL (140-360); RED BLOOD COUNT 3.96 x10e6/uL (4.3-5.7)
[2017-12-31 05:20] LABS: ALANINE AMINOTRANSFERASE 10 IU/L (0-55); ALBUMIN 2.9 g/dL (3.5-5.0); ALBUMIN/GLOBULIN RATIO 0.7 (0.8-2.0); ALKALINE PHOSPHATASE 73 IU/L (40-150); ANION GAP 15.5 mmol/L (8-16); BLOOD UREA NITROGEN 10 mg/dL (7-26); BUN/CREATININE RATIO 8 (6-25); CALCIUM 9.8 mg/dL (8.4-10.2); CARBON DIOXIDE 24 mmol/L (22-29); CHLORIDE 102 mmol/L (98-107); CREATININE, SERUM 1.19 mg/dL (0.72-1.25); EST GLOMERULAR FILTRATION RATE > 60 ML/MIN (60-); GLUCOSE 160 mg/dL (74-118); POTASSIUM 4.5 mmol/L (3.5-5.1); SODIUM 137 mmol/L (136-145)
[2017-12-31] MEDS: PIPER-TAZ 3.375 GM 50 ML IV SCH ×3 (05:31→22:02)
[2017-12-31] MEDS ORDERED: METHYLPREDNISOLONE SOD SUCC 125 MG/2ML VIAL IV NR (06:45)
[2017-12-31] MEDS: PANTOPRAZOLE SOD 40 MG TABEC PO SCH (08:59)
[2018-01-01] VITALS (7 sets, daily range): BP systolic 102–135; BP diastolic 56–75
[2018-01-01] MEDS: SODIUM CHLORIDE 0.9% 1000ML 1,000 ML IV SCH ×3 (01:40→15:40)
[2018-01-01] MEDS: VANCOMYCIN 1GM/NS 250 ML 250 ML IV SCH ×2 (02:01→13:35)
[2018-01-01] MEDS: ONDANSETRON HCL INJ 2 MG/ML VIAL IV PRN ×6 (02:15→22:40)
[2018-01-01] MEDS: HYDROMORPHONE 2MG/ML 2 MG/ML ML IV PRN ×6 (02:15→22:40)
[2018-01-01] MEDS: PIPER-TAZ 3.375 GM 50 ML IV SCH ×3 (06:07→22:40)
[2018-01-01] MEDS: BISACODYL 5 MG TAB EC PO PRN ×2 (09:24→17:30)
[2018-01-01] MEDS: PANTOPRAZOLE SOD 40 MG TABEC PO SCH (09:24)
[2018-01-01 12:28] LABS: BASOPHILS % 0.1 % (0.0-1.0); HEMATOCRIT 33.4 % (38.2-49.6); LYMPHOCYTES # (AUTO) 1.6 (1.0-3.2); LYMPHOCYTES % 10.8 % (18.0-39.1); MEAN CORPUSCULAR HEMOGLOBIN 28.9 pg (28-32); MEAN CORPUSCULAR HGB CONC 32.9 g/dL (31-35); MEAN CORPUSCULAR VOLUME 87.9 fL (81-99); MONOCYTES # (AUTO) 0.6 (0.2-0.8); MONOCYTES % 4.2 % (4.4-11.3); NEUTROPHILS # (AUTO) 12.8 (2.1-6.9); NEUTROPHILS % 84.5 % (38.7-80.0); PLATELET COUNT 374 x10e3/uL (140-360); RED CELL DISTRIBUTION WIDTH 13.2 % (11.7-14.4)
[2018-01-01 12:51] LABS: ALANINE AMINOTRANSFERASE 13 IU/L (0-55); ALBUMIN 2.6 g/dL (3.5-5.0); ALBUMIN/GLOBULIN RATIO 0.7 (0.8-2.0); ALKALINE PHOSPHATASE 70 IU/L (40-150); ANION GAP 12.8 mmol/L (8-16); BLOOD UREA NITROGEN 12 mg/dL (7-26); BUN/CREATININE RATIO 11 (6-25); CALCIUM 9.3 mg/dL (8.4-10.2); CARBON DIOXIDE 26 mmol/L (22-29); CHLORIDE 104 mmol/L (98-107); CREATININE, SERUM 1.11 mg/dL (0.72-1.25); EST GLOMERULAR FILTRATION RATE > 60 ML/MIN (60-); GLUCOSE 111 mg/dL (74-118); POTASSIUM 3.8 mmol/L (3.5-5.1); SODIUM 139 mmol/L (136-145)
[2018-01-02] VITALS (7 sets, daily range): BP systolic 112–135; BP diastolic 59–82
[2018-01-02] MEDS: SODIUM CHLORIDE 0.9% 1000ML 1,000 ML IV SCH ×3 (00:46→19:17)
[2018-01-02] MEDS: VANCOMYCIN 1GM/NS 250 ML 250 ML IV SCH ×2 (01:51→14:58)
[2018-01-02] MEDS: ONDANSETRON HCL INJ 2 MG/ML VIAL IV PRN ×4 (02:40→19:16)
[2018-01-02] MEDS: HYDROMORPHONE 2MG/ML 2 MG/ML ML IV PRN ×5 (02:40→19:16)
[2018-01-02 05:07] LABS: BASOPHILS % 0.2 % (0.0-1.0); EOSINOPHILS % 0.5 % (0.0-6.0); HEMATOCRIT 31.2 % (38.2-49.6); HEMOGLOBIN 10.1 g/dL (14.0-18.0); LYMPHOCYTES # (AUTO) 1.7 (1.0-3.2); LYMPHOCYTES % 19.8 % (18.0-39.1); MEAN CORPUSCULAR HGB CONC 32.4 g/dL (31-35); MEAN CORPUSCULAR VOLUME 89.7 fL (81-99); MONOCYTES # (AUTO) 0.5 (0.2-0.8); MONOCYTES % 6.1 % (4.4-11.3); NEUTROPHILS # (AUTO) 6.1 (2.1-6.9); PLATELET COUNT 350 x10e3/uL (140-360); RED BLOOD COUNT 3.48 x10e6/uL (4.3-5.7); RED CELL DISTRIBUTION WIDTH 13.3 % (11.7-14.4)
[2018-01-02 05:26] LABS: ALANINE AMINOTRANSFERASE 15 IU/L (0-55); ALBUMIN 2.5 g/dL (3.5-5.0); ALBUMIN/GLOBULIN RATIO 0.8 (0.8-2.0); ALKALINE PHOSPHATASE 69 IU/L (40-150); BLOOD UREA NITROGEN 13 mg/dL (7-26); BUN/CREATININE RATIO 10 (6-25); CALCIUM 8.9 mg/dL (8.4-10.2); CARBON DIOXIDE 26 mmol/L (22-29); CHLORIDE 105 mmol/L (98-107); CREATININE, SERUM 1.26 mg/dL (0.72-1.25); EST GLOMERULAR FILTRATION RATE > 60 ML/MIN (60-); GLUCOSE 112 mg/dL (74-118); SODIUM 140 mmol/L (136-145)
[2018-01-02] MEDS: METHYLPREDNISOLONE SOD SUCC 125 MG/2ML VIAL IV SCH ×3 (06:27→22:00)
[2018-01-02] MEDS: PIPER-TAZ 3.375 GM 50 ML IV SCH ×2 (06:27→16:24)
[2018-01-02] MEDS: SUCRALFATE 1 GM/10 ML SUSP NG SCH ×4 (08:08→20:37)
[2018-01-02] MEDS: PANTOPRAZOLE SOD 40 MG TABEC PO SCH (08:08)
[2018-01-02] MEDS: ALLOPURINOL 300 MG TAB PO SCH (08:09)
[2018-01-03] VITALS: BP 122/59
[2018-01-03] MEDS: PIPER-TAZ 3.375 GM 50 ML IV SCH ×2 (02:44→05:15)
[2018-01-03] MEDS: VANCOMYCIN 1GM/NS 250 ML 250 ML IV SCH ×2 (02:45→12:58)
[2018-01-03] MEDS: ONDANSETRON HCL INJ 2 MG/ML VIAL IV PRN ×3 (03:12→11:22)
[2018-01-03] MEDS: HYDROMORPHONE 2MG/ML 2 MG/ML ML IV PRN ×5 (03:14→11:22)
[2018-01-03 04:00] VITALS: BP 122/57
[2018-01-03] MEDS: METHYLPREDNISOLONE SOD SUCC 125 MG/2ML VIAL IV SCH (05:15)
[2018-01-03] MEDS: SUCRALFATE 1 GM/10 ML SUSP NG SCH ×2 (07:14→12:28)
[2018-01-03] MEDS: PANTOPRAZOLE SOD 40 MG TABEC PO SCH (07:14)
[2018-01-03] MEDS: SODIUM CHLORIDE 0.9% 1000ML 1,000 ML IV SCH (07:14)
[2018-01-03 08:20] VITALS: BP 130/60
[2018-01-03] MEDS: ALLOPURINOL 300 MG TAB PO SCH (08:59)
[2018-01-03 12:00] VITALS: BP 120/58
[2018-01-03 13:44] VITALS: BP 118/69
[2018-01-03] MEDS ORDERED: ALLOPURINOL300 MG PO (13:51)
[2018-01-07] MEDS ORDERED: TYLENOL PO (11:50)
--- NOTE | 2018-03-15 19:22 | Discharge Summary ---
DISCHARGE DIAGNOSES 1. Gouty arthritis. 2. Leukocytosis. HISTORY OF PRESENT ILLNESS AND HOSPITAL COURSE: See hospital chart for full details. Patient is a gentleman who presented with acute swelling and pain, unable to ambulate, where he has noticed to have a gouty attack of his bilateral lower extremities. He was brought in and placed on IV antibiotics initially to make sure he was not having any episodes of sepsis and was started on anti-uric acid medications as well as Solu-Medrol, which made a significant improvement in his overall gout that at the time of discharge, he was able to ambulate. He was discharged home. He will follow up in 1 to 2 weeks with me. Please see hospital chart for full details. RADHA COOK MD Job#: [id number] DONAL
== END 2018-01-03 14:21 | disposition home or self-care (01) ==
LOC: ER 09:11 → ERHOLD 12:03 → IMCU 13:32
PROVIDERS: ADMIT Internal Medicine; ATTEND Internal Medicine
DX: L03.116 Cellulitis of left lower limb (principal); M79.672 Pain in left foot; D72.829 Elevated white blood cell count, unspecified; Z83.3 Family history of diabetes mellitus; Z82.49 Family history of ischemic heart disease and other diseases of the circulatory system; K21.0 Gastro-esophageal reflux disease with esophagitis; K44.9 Diaphragmatic hernia without obstruction or gangrene; L03.115 Cellulitis of right lower limb; K59.00 Constipation, unspecified; D64.9 Anemia, unspecified
CPT/HCPCS: 36415 ×4; 73630; 80053 ×4; 80202; 83605; 84550; 85025 ×4; 85651; 86140; 86200; 86431; 87040; 87071; 87205; 93970; 99284; G0378 ×5; J1170 ×5; J2405 ×5; J2543 ×5; J2920; J2930 ×3; J3370 ×5; J7030 ×5; S0164 ×4

== ENCOUNTER → 2018-01-08 | Outpatient (CLI) | payer OTHER ==
[~2018-01-08] MED LIST changes: +ALLOPURINOL300 MG PO; +BUPIVACAINE 0.5%/EPI 30 ML SDV INJ ONE; +CEFAZOLIN SOD 2 GM/D5W 50ML 50 ML IV ONE; +TYLENOL PO
== END ==
LOC: LAB 05:25 → OR 05:25 → EDSTATUS 07:30
PROVIDERS: ATTEND Specialist
DX: Z01.818 Encounter for other preprocedural examination (principal); S83.241A Other tear of medial meniscus, current injury, right knee, initial encounter; Z53.8 Procedure and treatment not carried out for other reasons
CPT/HCPCS: J0690

== ENCOUNTER 2018-01-27 20:33 | Emergency (ER) | payer OTHER ==
[~2018-01-27] VITALS: Ht 193 cm; Wt 159.7 kg
[~2018-01-27 20:33] MED LIST changes: -BUPIVACAINE 0.5%/EPI 30 ML SDV INJ ONE; -CEFAZOLIN SOD 2 GM/D5W 50ML 50 ML IV ONE
== END 2018-01-27 22:39 | disposition home or self-care (01) ==
LOC: ER 20:33
DX: M79.662 Pain in left lower leg (principal); K21.9 Gastro-esophageal reflux disease without esophagitis; Z86.2 Personal history of diseases of the blood and blood-forming organs and certain disorders involving the immune mechanism
CPT/HCPCS: 93971; 99283

== ENCOUNTER → 2018-09-01 | Day surgery (SDC) | payer OTHER ==
[~2018-09-01] MED LIST changes: +ACETAMINOPHEN 1000 MG/100 ML 100 ML IV ONE; +CEFAZOLIN SOD 1 GM/NS 50ML 50 ML IV ONE; +DEXAMETHASONE SOD PHOS INJ 4 MG/ML VIAL ONE; +FENTANYL CITRATE/PF 100MCG/2 ML INJ ONE; +HYDROMORPHONE 2MG/ML 2 MG/ML ML ONE; +LIDOCAINE HCL 2% LOCAL INJ 5 ML SDV VIAL INJ ONE; +MIDAZOLAM HCL 2 MG/2 ML VIAL ONE; +ONDANSETRON HCL INJ 2MG/ML 2ML 2 MG/ML VIAL ONE; +PERCOCET 7.5-31 EACH PO; +PROPOFOL IV EMULSION 10 MG/ML 20 ML VIAL ONE; +SEVOFLURANE INHAL SOLN 250 ML PEN BTL ONE
[2018-09-01 13:10] VITALS: BP 119/73
--- NOTE | 2018-09-01 18:43 | Operative Report ---
DATE OF PROCEDURE: 09/01/2018 SURGEON: Lefty Erickson MD BUILDING ILLUMINATING ENGINEER: Bolivar Gordillo. PREOPERATIVE DIAGNOSIS: Right carpal tunnel syndrome. POSTOPERATIVE DIAGNOSIS: Right carpal tunnel syndrome. PROCEDURE: Right endoscopic carpal tunnel release. INDICATIONS: The patient is a 48-year-old gentleman, who has clinic signs and symptoms consistent with a right carpal tunnel syndrome. He has failed conservative management and would like to proceed with a right endoscopic versus open carpal tunnel release. The risks and benefits of the procedure have been discussed. He states he understands and wishes to proceed. PROCEDURE IN DETAIL: The patient was brought to the operating room and placed under general anesthetic. His right upper extremity was prepped and draped in a sterile manner. He received prophylactic antibiotics in the holding area. A preoperative time-out was performed. The extremity was exsanguinated and a proximal tourniquet was inflated to 250 mmHg. An incision was made over the flexion crease of the right wrist. The flexor retinaculum was elevated and incised. An elevator was used to tease the tenosynovium off the undersurface of the transverse carpal ligament. Dilators were carefully placed and the hook of the hamate was palpated. The MicroAire endoscope was placed into the carpal tunnel. The undersurface of the transverse carpal ligament could be cleanly visualized without evidence of soft tissue interposition. The knife was deployed and the ligament was cut from distal to proximal. A full-thickness cut was noted. The proximal retinaculum was incised under direct visualization using a pair of blunt Metzenbaum scissors. Two interrupted nylon stitches were used to close the incision. A sterile bandage was applied. The patient was extubated and transported to the recovery room in stable condition. There was no blood loss and all needle and sponge counts were correct. Lefty Erickson MD DR/HUMBERTO /[id number]
== END | disposition home or self-care (01) ==
LOC: OR 09:34
PROVIDERS: ATTEND Specialist
DX: G56.01 Carpal tunnel syndrome, right upper limb (principal); I10 Essential (primary) hypertension; K21.9 Gastro-esophageal reflux disease without esophagitis; N20.0 Calculus of kidney; M10.9 Gout, unspecified; E66.9 Obesity, unspecified; Z88.8 Allergy status to other drugs, medicaments and biological substances; Z01.810 Encounter for preprocedural cardiovascular examination; Z68.41 Body mass index [BMI] 40.0-44.9, adult
CPT/HCPCS: 29848; 93005; J0131; J0690; J1100; J1170; J2001; J2250; J2405; J2704

== ENCOUNTER 2018-10-23 10:30 | Emergency (ER) | payer OTHER ==
[~2018-10-23] VITALS: Ht 193 cm; Wt 159.7 kg
[~2018-10-23 10:30] MED LIST changes: -ACETAMINOPHEN 1000 MG/100 ML 100 ML IV ONE; -CEFAZOLIN SOD 1 GM/NS 50ML 50 ML IV ONE; -DEXAMETHASONE SOD PHOS INJ 4 MG/ML VIAL ONE; -FENTANYL CITRATE/PF 100MCG/2 ML INJ ONE; -HYDROMORPHONE 2MG/ML 2 MG/ML ML ONE; -LIDOCAINE HCL 2% LOCAL INJ 5 ML SDV VIAL INJ ONE; -MIDAZOLAM HCL 2 MG/2 ML VIAL ONE; -ONDANSETRON HCL INJ 2MG/ML 2ML 2 MG/ML VIAL ONE; -PROPOFOL IV EMULSION 10 MG/ML 20 ML VIAL ONE; -SEVOFLURANE INHAL SOLN 250 ML PEN BTL ONE
[2018-10-23] MEDS ORDERED: SODIUM CHLORIDE 0.9% 1000ML 1,000 ML IV STA (10:36)
[2018-10-23] MEDS ORDERED: DIPHENHYDRAMINE HCL INJ 50 MG/ML VIAL IV NR (10:45)
[2018-10-23] MEDS ORDERED: MORPHINE SULFATE INJ 4 MG/ML INJ 1ML IV NR (10:45)
[2018-10-23] MEDS ORDERED: METOCLOPRAMIDE HCL 10 MG/2ML VIAL IV NR (10:45)
[2018-10-23] MEDS ORDERED: ACETAMIN/BUTALBITAL/CAFFEINE TAB PO ONE (11:00)
[2018-10-23 11:05] LABS: BASOPHILS # (AUTO) 0.1 (0.0-0.1); BASOPHILS % 0.5 % (0.0-1.0); EOSINOPHILS # (AUTO) 0.2 (0.0-0.4); HEMATOCRIT 46.1 % (38.2-49.6); LYMPHOCYTES # (AUTO) 1.1 (1.0-3.2); LYMPHOCYTES % 11.5 % (18.0-39.1); MEAN CORPUSCULAR HEMOGLOBIN 27.5 pg (28-32); MEAN CORPUSCULAR HGB CONC 32.5 g/dL (31-35); MEAN CORPUSCULAR VOLUME 84.4 fL (81-99); MONOCYTES # (AUTO) 0.5 (0.2-0.8); MONOCYTES % 5.1 % (4.4-11.3); NEUTROPHILS # (AUTO) 7.9 (2.1-6.9); NEUTROPHILS % 80.5 % (38.7-80.0); PLATELET COUNT 329 x10e3/uL (140-360); RED BLOOD COUNT 5.46 x10e6/uL (4.3-5.7); RED CELL DISTRIBUTION WIDTH 13.4 % (11.7-14.4)
[2018-10-23 11:23] LABS: ALANINE AMINOTRANSFERASE 22 IU/L (0-55); ALBUMIN 3.6 g/dL (3.5-5.0); ALKALINE PHOSPHATASE 133 IU/L (40-150); ANION GAP 13.2 mmol/L (8-16); BLOOD UREA NITROGEN 12 mg/dL (7-26); BUN/CREATININE RATIO 10 (6-25); CALCIUM 9.8 mg/dL (8.4-10.2); CARBON DIOXIDE 27 mmol/L (22-29); CHLORIDE 102 mmol/L (98-107); CREATINE KINASE 84 IU/L (30-200); CREATININE, SERUM 1.24 mg/dL (0.72-1.25); EST GLOMERULAR FILTRATION RATE > 60 ML/MIN (60-); GLUCOSE 119 mg/dL (74-118); POTASSIUM 4.2 mmol/L (3.5-5.1); SODIUM 138 mmol/L (136-145)
--- NOTE | 2018-10-23 11:27 | Diagnostic Imaging Report ---
Chest, 1 view, 10/23/2018. History: Chest pain. Comparison: None available. Findings: The cardiomediastinal silhouette and pulmonary vasculature are within normal limits for a portable exam. There is no focal consolidation or pleural effusion. There are no acute osseous or soft tissue abnormalities. Impression: No acute cardiopulmonary abnormality. Signed by: Mao Servin on 10/23/2018 11:24 AM
[2018-10-23 11:36] LABS: INR 0.84
[2018-10-23 11:37] LABS: PARTIAL THROMBOPLASTIN TIME 28.1 seconds (23.8-35.5)
--- NOTE | 2018-10-23 11:38 | Diagnostic Imaging Report ---
CT BRAIN WO HISTORY: Headache, weakness COMPARISON: None. TECHNIQUE: Noncontrast axial scans were obtained from skull base to the vertex. Coronal and sagittal reconstructions obtained from the axial data. One or more of the following dose reduction techniques were used: Automated exposure control, adjustment of the mA and/or kV according to patient size, and/or utilization of iterative reconstruction technique. DISCUSSION: Scalp/Skull: Unremarkable. Brain sulci: Appropriate for patient's age. Ventricles: Normal in size and configuration. No hydrocephalus. Extra-axial spaces: No masses or fluid collections. Parenchyma: No abnormal densities. No mass, hemorrhage, or large vascular territory acute infarct. Dural sinuses: No abnormal densities. Sellar/Suprasellar region: Intact. Skull base: Intact. Incidental findings: Mild bilateral ethmoid air cell mucosal thickening is present. IMPRESSION: No intracranial abnormalities. Signed by: Dr. Willam Lombardi M.D. on 10/23/2018 11:34 AM
[2018-10-23 12:31] LABS: BILIRUBIN,URINE NEGATIVE (NEGATIVE); CLARITY,URINE SL CLOUDY (CLEAR); COLOR,URINE YELLOW (YELLOW); KETONES,URINE NEGATIVE (NEGATIVE); LEUKOCYTE ESTERASE ,URINE NEGATIVE (NEGATIVE); NITRITE,URINE NEGATIVE (NEGATIVE); PROTEIN,URINE DIPSTICK NEGATIVE (NEGATIVE); URINE UROBILINOGEN 0.2 mg/dL (0.2 - 1)
[2018-10-23 12:33] LABS: AMPHETAMINES SCREEN,URINE NEGATIVE (NEGATIVE); PHENCYCLIDINE SCREEN,URINE NEGATIVE (NEGATIVE)
[2018-10-23 12:34] LABS: BENZODIAZEPINES SCREEN,URINE NEGATIVE (NEGATIVE)
[2018-10-23 12:48] LABS: BACTERIA,URINE FEW /HPF; EPITHELIAL CELLS,URINE RARE /LPF; WBC,URINE (MAN) 0-5 /HPF (0-5)
== END 2018-10-23 13:45 | disposition home or self-care (01) ==
LOC: ER 10:30
DX: R07.89 Other chest pain (principal); G44.1 Vascular headache, not elsewhere classified; G44.89 Other headache syndrome
CPT/HCPCS: 36415; 70450; 71045; 80053; 80307; 81001; 82550; 82553; 83880; 84484; 85025; 85610; 85730; 93005; 99284; J1200; J2765; J7030

== ENCOUNTER 2019-02-10 13:45 | Inpatient (IN) | payer SELFPAY ==
[~2019-02-10] VITALS: Ht 193 cm; Wt 163.3 kg
[2019-02-10] MEDS ORDERED: SODIUM CHLORIDE 0.9% 1000ML 1,000 ML IV STA (13:55)
[2019-02-10] MEDS ORDERED: ONDANSETRON HCL INJ 2MG/ML 2ML 2 MG/ML VIAL IV NR (14:00)
[2019-02-10] MEDS ORDERED: HYDROCODONE/APAP 10MG-325MG TAB PO ONE (14:15)
[2019-02-10 15:14] LABS: BASOPHILS % 0.2 % (0.0-1.0); EOSINOPHILS # (AUTO) 0.1 (0.0-0.4); EOSINOPHILS % 1.1 % (0.0-6.0); HEMATOCRIT 43.3 % (38.2-49.6); HEMOGLOBIN 13.7 g/dL (14.0-18.0); LYMPHOCYTES # (AUTO) 1.2 (1.0-3.2); LYMPHOCYTES % 9.7 % (18.0-39.1); MEAN CORPUSCULAR HEMOGLOBIN 27.4 pg (28-32); MEAN CORPUSCULAR HGB CONC 31.6 g/dL (31-35); MEAN CORPUSCULAR VOLUME 86.6 fL (81-99); MONOCYTES # (AUTO) 0.6 (0.2-0.8); MONOCYTES % 4.9 % (4.4-11.3); NEUTROPHILS # (AUTO) 10.1 (2.1-6.9); NEUTROPHILS % 83.7 % (38.7-80.0); PLATELET COUNT 321 x10e3/uL (140-360); RED CELL DISTRIBUTION WIDTH 13.2 % (11.7-14.4)
[2019-02-10 15:24] LABS: INR 0.91; PROTHROMBIN TIME 12.7 seconds (11.9-14.5)
--- NOTE | 2019-02-10 15:25 | Diagnostic Imaging Report ---
EXAMINATION: CHEST SINGLE (PORTABLE) INDICATION: Back pain COMPARISON: Chest radiograph of 10/23/2018 FINDINGS: Study is extremely underpenetrated due to patient body habitus. LINES/TUBES:EKG leads overlie the chest. LUNGS:The lungs are well-inflated. No focal consolidation or pulmonary edema. PLEURA:No pleural effusion or pneumothorax. MEDIASTINUM:The cardiomediastinal silhouette appears normal in size and shape. BONES/SOFT TISSUES:No acute osseous injury. ABDOMEN:No free air under the diaphragm. IMPRESSION: No definite focal pneumonia or pulmonary edema. Underpenetrated study due to large patient body habitus. Signed by: Marzena Caruso MD on 02/10/2019 3:22 PM
[2019-02-10] MEDS ORDERED: HYDROMORPHONE 1MG/1ML INJ IV NR ×2 (15:30→18:00)
[2019-02-10 15:34] LABS: ALANINE AMINOTRANSFERASE 20 IU/L (0-55); ALBUMIN 3.2 g/dL (3.5-5.0); ALKALINE PHOSPHATASE 121 IU/L (40-150); BLOOD UREA NITROGEN 15 mg/dL (7-26); BUN/CREATININE RATIO 13 (6-25); CALCIUM 9.4 mg/dL (8.4-10.2); CARBON DIOXIDE 26 mmol/L (22-29); CHLORIDE 102 mmol/L (98-107); CREATINE KINASE 122 IU/L (30-200); CREATININE, SERUM 1.19 mg/dL (0.72-1.25); EST GLOMERULAR FILTRATION RATE > 60 ML/MIN (60-); GLUCOSE 135 mg/dL (74-118); LIPASE 39 U/L (8-78); SODIUM 136 mmol/L (136-145)
--- NOTE | 2019-02-10 16:01 | NUR ---
MEDICATED FOR BACK PAIN 10/10 WITH 1MG IV DILAUDID. ATTEMPTING TO OBTAIN IV ACCESS FOR CTA. #20 GAUGE TO THE LEFT HAND FOR IVF AND MEDS STARTED ON ARRIVAL TO THE ROOM.
--- NOTE | 2019-02-10 17:02 | NUR ---
urine collected and sent off to the lab.
[2019-02-10 17:07] LABS: BILIRUBIN,URINE NEGATIVE (NEGATIVE); CLARITY,URINE CLEAR (CLEAR); COLOR,URINE YELLOW (YELLOW); KETONES,URINE NEGATIVE (NEGATIVE); LEUKOCYTE ESTERASE ,URINE NEGATIVE (NEGATIVE); NITRITE,URINE NEGATIVE (NEGATIVE); PROTEIN,URINE DIPSTICK NEGATIVE (NEGATIVE); URINE UROBILINOGEN 0.2 mg/dL (0.2 - 1)
[2019-02-10 17:22] LABS: RBC,URINE 0-5 /HPF (0-5)
--- NOTE | 2019-02-10 17:39 | Diagnostic Imaging Report ---
EXAM: CTA Chest, Abdomen and Pelvis WITHOUT AND WITH intravenous contrast INDICATION: Chest pain, abdominal pain COMPARISON: None. TECHNIQUE: The chest, abdomen and pelvis were scanned utilizing a multidetector helical scanner from the thoracic inlet to the pubic symphysis BEFORE AND AFTER administration of IV contrast. Coronal and sagittal reformations were obtained. CTA protocol was performed. 3D reconstruction was performed and viewed on dedicated workstation and used for interpretation. IV CONTRAST:100cc Isovue 370 ORAL CONTRAST: None COMPLICATIONS: None RADIATION DOSE: Total DLP: 1813.7 mGy*cm Dose modulation, iterative reconstruction, and/or weight based adjustment of the mA/kV was utilized to reduce the radiation dose to as low as reasonably achievable. FINDINGS: LINES/ TUBES: None. LUNGS AND AIRWAYS: The central airways are patent. No focal consolidation or pulmonary edema. PLEURA: No pleural effusion. No pneumothorax. HEART AND MEDIASTINUM: The thyroid gland is normal. No supraclavicular, mediastinal, or hilar lymphadenopathy. The heart is not enlarged. No pericardial effusion. No large central pulmonary embolism. The pulmonary artery is not enlarged. HEPATOBILIARY: No focal hepatic lesions. No biliary ductal dilatation. The gallbladder appears unremarkable. SPLEEN: No splenomegaly. PANCREAS: No focal masses or ductal dilatation. ADRENALS: No adrenal nodules. KIDNEYS/URETERS: Bilateral nonobstructive renal calculi measuring up to 11 mm at the right upper pole, 6 mm at the right lower pole, 5 mm at the left lower pole, and 5 mm at the left upper pole. No hydronephrosis. No solid mass lesion. PELVIC ORGANS/BLADDER: Unremarkable. PERITONEUM / RETROPERITONEUM: No free air or fluid. LYMPH NODES: No lymphadenopathy. VESSELS: No aortic aneurysm. No aortic dissection. No substantial atherosclerotic calcifications. The celiac, SMA, and SHERRI are widely patent. The renal arteries are patent. GI TRACT: Diverticulosis with mild segmental wall thickening and pericolonic fat stranding at the mid sigmoid colon associated with several diverticuli. No focal drainable fluid collection or extraluminal air. Otherwise, no abnormal bowel wall thickening or bowel obstruction. Normal appendix. BONES AND SOFT TISSUES: No acute osseous injury. No suspicious lytic blastic lesions. Mild degenerative changes of the visualized spine. IMPRESSION: No aortic aneurysm or aortic dissection. No large central pulmonary embolism. Acute uncomplicated sigmoid diverticulitis. Bilateral nonobstructive renal calculi measuring up to 11 mm on the right and 5 mm on the left. Signed by: Marzena Caruso MD on 02/10/2019 5:36 PM
[2019-02-10] MEDS: CIPROFLOXACIN 400 MG/D5W 200ML 200 ML IV SCH (18:00)
[2019-02-10] MEDS: METRONIDAZOLE 500MG/NS 100ML 100 ML IV SCH ×2 (18:24→19:27)
[2019-02-10] MEDS: ONDANSETRON HCL INJ 2MG/ML 2ML 2 MG/ML VIAL IV PRN ×2 (18:24→22:30)
[2019-02-10] MEDS ORDERED: IOPAMIDOL 370 MG/ML 200 ML INFUS..BTL INJ ONE ×2 (19:24→20:21)
[2019-02-10] MEDS ORDERED: SODIUM CHLORIDE 0.9% 50ML 50 ML ONE (19:24)
[2019-02-10] MEDS: SODIUM CHLORIDE 0.9% 1000ML 1,000 ML IV SCH (19:27)
--- NOTE | 2019-02-10 20:20 | NUR ---
PT WAS BROUGHT FROM ER IN A STRETCHER WITH C/O BACK PAIN ,ABD .PAIN.ASSESSMENT DONE.AAOX4.NO RESP.DISTRESS.IV FLUID INFUSING.ORIENTED TO THE UNIT.BED LOCKED AND LOWEST POSITION.PHONE AND CALL LIGHT WITHIN REACH.INSTRUCTED TO CALL FOR ASSISTANCE NEEDED.
[2019-02-10] MEDS ORDERED: SODIUM CHLORIDE 0.9% 0 ML ONE (20:21)
[2019-02-10 20:25] VITALS: BP 154/90
[2019-02-10] MEDS: HYDROMORPHONE 1MG/1ML INJ IV PRN (21:28)
[2019-02-10 22:13] VITALS: BP 154/90
[2019-02-10 23:29] VITALS: BP 138/81
[2019-02-11] VITALS (9 sets, daily range): BP systolic 107–128; BP diastolic 70–83
[2019-02-11] MEDS: METRONIDAZOLE 500MG/NS 100ML 100 ML IV SCH ×5 (00:09→23:13)
[2019-02-11] MEDS: HYDROMORPHONE 1MG/1ML INJ IV PRN ×8 (00:30→21:32)
[2019-02-11] MEDS: ONDANSETRON HCL INJ 2MG/ML 2ML 2 MG/ML VIAL IV PRN ×3 (03:30→21:42)
[2019-02-11] MEDS: SODIUM CHLORIDE 0.9% 1000ML 1,000 ML IV SCH ×3 (03:33→20:30)
[2019-02-11] MEDS ORDERED: SUCRALFATE 1 GM TAB PO SCH (05:00)
[2019-02-11 05:51] LABS: BASOPHILS % 0.4 % (0.0-1.0); EOSINOPHILS # (AUTO) 0.2 (0.0-0.4); EOSINOPHILS % 1.8 % (0.0-6.0); HEMOGLOBIN 12.8 g/dL (14.0-18.0); LYMPHOCYTES # (AUTO) 1.5 (1.0-3.2); LYMPHOCYTES % 13.4 % (18.0-39.1); MEAN CORPUSCULAR HEMOGLOBIN 27.8 pg (28-32); MEAN CORPUSCULAR HGB CONC 31.2 g/dL (31-35); MEAN CORPUSCULAR VOLUME 88.9 fL (81-99); MONOCYTES # (AUTO) 0.6 (0.2-0.8); MONOCYTES % 4.9 % (4.4-11.3); NEUTROPHILS % 79.1 % (38.7-80.0); PLATELET COUNT 289 x10e3/uL (140-360); RED BLOOD COUNT 4.61 x10e6/uL (4.3-5.7); RED CELL DISTRIBUTION WIDTH 13.5 % (11.7-14.4)
[2019-02-11 06:21] LABS: ALANINE AMINOTRANSFERASE 18 IU/L (0-55); ALKALINE PHOSPHATASE 112 IU/L (40-150); ANION GAP 10.2 mmol/L (8-16); BLOOD UREA NITROGEN 14 mg/dL (7-26); BUN/CREATININE RATIO 11 (6-25); CARBON DIOXIDE 28 mmol/L (22-29); CHLORIDE 103 mmol/L (98-107); CREATININE, SERUM 1.23 mg/dL (0.72-1.25); EST GLOMERULAR FILTRATION RATE > 60 ML/MIN (60-); GLUCOSE 128 mg/dL (74-118); POTASSIUM 4.2 mmol/L (3.5-5.1); SODIUM 137 mmol/L (136-145)
--- NOTE | 2019-02-11 06:50 | NUR ---
Bed side shift report given to the oncoming Rn.stable condition.
[2019-02-11] MEDS ORDERED: PANTOPRAZOLE SOD 40 MG TABEC PO SCH (09:00)
[2019-02-11] MEDS ORDERED: ALLOPURINOL 300 MG TAB PO SCH (09:00)
[2019-02-11] MEDS: CIPROFLOXACIN 400 MG/D5W 200ML 200 ML IV SCH ×2 (09:10→20:29)
--- NOTE | 2019-02-11 19:10 | NUR ---
Report given to oncoming nurse of patient's status. Resting in bed. No s/s of acute distress noted. Side rails upx2, call light within reach, family at bedside.
--- NOTE | 2019-02-11 19:10 | NUR ---
Received report from day nurse. Patient is resting comfortably in bed. Bed is in lowest position and call souza is within reach. Will continue to monitor patient.
[2019-02-11] MEDS: PANTOPRAZOLE SOD 40 MG TABEC PO SCH (20:29)
[2019-02-11] MEDS: ALLOPURINOL 300 MG TAB PO SCH (20:30)
[2019-02-11] MEDS ORDERED: SUCRALFATE 1 GM TAB PO PRN (21:45)
[2019-02-12] VITALS (8 sets, daily range): BP systolic 103–122; BP diastolic 54–77
[2019-02-12] MEDS: HYDROMORPHONE 1MG/1ML INJ IV PRN ×8 (00:34→22:30)
[2019-02-12] MEDS: SODIUM CHLORIDE 0.9% 1000ML 1,000 ML IV SCH ×3 (01:56→16:45)
[2019-02-12] MEDS: ONDANSETRON HCL INJ 2MG/ML 2ML 2 MG/ML VIAL IV PRN ×4 (04:34→22:30)
[2019-02-12] MEDS: METRONIDAZOLE 500MG/NS 100ML 100 ML IV SCH ×3 (05:13→18:00)
--- NOTE | 2019-02-12 06:56 | NUR ---
report given to day nurse, patient is resting comfortably in bed. bed is in lowest position and call souza is within reach.
[2019-02-12] MEDS: CIPROFLOXACIN 400 MG/D5W 200ML 200 ML IV SCH ×2 (09:28→22:40)
[2019-02-12] MEDS: PANTOPRAZOLE SOD 40 MG TABEC PO SCH (22:40)
[2019-02-12] MEDS: ALLOPURINOL 300 MG TAB PO SCH (22:40)
[2019-02-13] VITALS (7 sets, daily range): BP systolic 103–136; BP diastolic 57–80
[2019-02-13] MEDS: METRONIDAZOLE 500MG/NS 100ML 100 ML IV SCH ×4 (00:40→18:05)
[2019-02-13] MEDS: HYDROMORPHONE 1MG/1ML INJ IV PRN ×7 (01:30→22:12)
[2019-02-13] MEDS: SODIUM CHLORIDE 0.9% 1000ML 1,000 ML IV SCH ×4 (01:56→17:31)
[2019-02-13] MEDS: ONDANSETRON HCL INJ 2MG/ML 2ML 2 MG/ML VIAL IV PRN ×2 (04:36→18:12)
[2019-02-13] MEDS: BISACODYL 5 MG TAB EC PO SCH (05:20)
--- NOTE | 2019-02-13 06:59 | NUR ---
report given to day nurse. patient is resting in bed. bed is in lowest position and call light is within reach.
--- NOTE | 2019-02-13 07:00 | NUR ---
BEDSIDE SHIFT REPORT RECEIVED FROM NIGHT RN. PT DENIES NEEDS AT THIS TIME.
[2019-02-13] MEDS: CIPROFLOXACIN 400 MG/D5W 200ML 200 ML IV SCH ×2 (08:11→20:33)
[2019-02-13] MEDS: POLYETHYLENE GLYCOL 3350 17 GM PACK PO SCH (08:11)
[2019-02-13] MEDS: PANTOPRAZOLE SOD 40 MG TABEC PO SCH (20:33)
[2019-02-13] MEDS: ALLOPURINOL 300 MG TAB PO SCH (20:33)
--- NOTE | 2019-02-13 21:00 | NUR ---
PT C/O PAIN TO LEFT AC 18G IV.CATH TIP NOTED INTACT UPON REMOVAL.DRESSING APPLIED.CALL LIGHT WITHIN EASY REACH.
[2019-02-14] MEDS: METRONIDAZOLE 500MG/NS 100ML 100 ML IV SCH ×2 (00:03→06:00)
[2019-02-14 00:27] VITALS: BP 91/55
[2019-02-14] MEDS: SODIUM CHLORIDE 0.9% 1000ML 1,000 ML IV SCH (01:56)
[2019-02-14] MEDS: HYDROMORPHONE 1MG/1ML INJ IV PRN ×2 (02:12→06:35)
[2019-02-14 04:00] VITALS: BP 110/65
[2019-02-14] MEDS: BISACODYL 5 MG TAB EC PO SCH (05:15)
--- NOTE | 2019-02-14 06:41 | Progress Note ---
DATE: SUBJECTIVE: A 49-year-old male with history of diverticulitis. The patient has been on antibiotic, came on Saturday, currently on Cipro and Flagyl. The patient is symptom free. Pain is better. The patient is also taking hydromorphone 1 mg q.6 hours as needed. The patient is also on hydrocodone q.6 hours p.r.n. The patient also had bowel movements and also tolerating a full diet. PHYSICAL EXAMINATION: VITAL SIGNS: Temperature is 96.9, pulse 70, respirations of 20, blood pressure is 110/65. HEENT: Normocephalic, atraumatic. No icterus present. CVS: S1 and S2 normal. Regular rate and rhythm. ABDOMEN: Nontender, nondistended, soft. EXTREMITIES: No clubbing, no cyanosis, no edema. LABORATORY VALUES: White count 11.42 from 02/11. Chemistry shows sodium of 137 and potassium 4.2 from 02/11. Lipase has been normal. Coags were normal. ASSESSMENT: Sigmoid diverticulitis. The patient can be discharged home on Cipro and Flagyl today, has been tolerating diet. Pain is better. The patient to be followed up with Dr. Pérez, who is a primary care physician, on Saturday or Saturday. Strict ER warnings given. The patient will be given a soft mechanical diet and will be discharged on a soft mechanical diet. Further recommendation as outpatient. We will continue monitor the patient and again strict ER warnings given to the patient. MD JOANA Garcia/EMMYL /[id number]
[2019-02-14] MEDS: ONDANSETRON HCL INJ 2MG/ML 2ML 2 MG/ML VIAL IV PRN (06:44)
--- NOTE | 2019-02-14 07:00 | NUR ---
RECEIVED PATIENT RESTING IN BED NO SIGNS OF DISTRESS. BED LOW, WHEELS LOCKED, SIDE RAILS X2. CALL LIGHT IN REACH WILL CONTINUE TO MONITOR PATIENT.
--- NOTE | 2019-02-14 07:05 | NUR ---
REPORT GIVEN TO ONCOMING NURSE.WALKING ROUNDS MADE.PT RESTING IN BED WITH NO S/S OF DISTRESS.CALL LIGHT WITHIN EASY REACH.
[2019-02-14 07:35] VITALS: BP 105/61
[2019-02-14 08:04] VITALS: BP 105/61
[2019-02-14] MEDS: CIPROFLOXACIN 400 MG/D5W 200ML 200 ML IV SCH (08:29)
[2019-02-14] MEDS: POLYETHYLENE GLYCOL 3350 17 GM PACK PO SCH (08:29)
[2019-02-14] MEDS ORDERED: FLAGYL250 MG PO (08:38)
[2019-02-14] MEDS ORDERED: CIPRO500 MG PO (08:38)
--- NOTE | 2019-02-14 09:40 | NUR ---
REMOVED PATIENTS IV. CATHETER TIP INTACT AND PRESSURE DRESSING APPLIED.
--- NOTE | 2019-02-14 09:44 | NUR ---
PATIENT DISCHARGED FROM FACILITY. PATIENT GATHERED ALL PERSONAL BELONGINGS, DISCHARGE INSTRUCTIONS, AND FOLLOW UP INFORMATION. LEFT UNIT IN WHEELCHAIR AND WENT HOME VIA PRIVATE AUTO. NO SIGNS OF DISTRESS WHEN LEAVING FACILITY.
--- NOTE | 2019-02-16 05:22 | Discharge Summary ---
DISCHARGE DIAGNOSES: 1. Acute sigmoid diverticulitis. 2. Hypertension. HISTORY OF PRESENT ILLNESS AND HOSPITAL COURSE: See also chart for full details. The patient is a gentleman, who presented to the emergency room with acute lower back pain on the left side and was found on CT scan to have acute sigmoid diverticulitis, so he was brought in and placed on IV antibiotics, pain control, which did slowly and daily make an improvement in his overall pain. By the time of discharge, his pain is very minimal. He was tolerating p.o. intake well. He is ambulating well. He was asking to be discharged home, so he was switched over to p.o. antibiotics and discharged home to follow up with me in 1 to 2 weeks. Please see hospital chart for full details. MD KANDI Brown/HUMBERTO /[id number]
== END 2019-02-14 09:45 | disposition home or self-care (01) | DRG 392 ==
LOC: ER 13:45 → ERHOLD 17:59 → MED/SURG 20:25 → OBSVTOIN 02-11 08:53
PROVIDERS: ADMIT Internal Medicine; ATTEND Internal Medicine
DX: K57.32 Diverticulitis of large intestine without perforation or abscess without bleeding (principal); Z68.41 Body mass index [BMI] 40.0-44.9, adult; K21.9 Gastro-esophageal reflux disease without esophagitis; M10.9 Gout, unspecified; Z83.3 Family history of diabetes mellitus; Z82.49 Family history of ischemic heart disease and other diseases of the circulatory system; Z88.5 Allergy status to narcotic agent; Z88.8 Allergy status to other drugs, medicaments and biological substances; E66.01 Morbid (severe) obesity due to excess calories; D64.9 Anemia, unspecified; I10 Essential (primary) hypertension
CPT/HCPCS: 36415; 71045; 71275; 74174; 80053; 81001; 82550; 82553; 83690; 83880; 84484; 85025; 85610; 93005; 99284; G0378; J1170; J2405; J7030; J7050; Q9967

== ENCOUNTER 2020-09-15 17:55 | Inpatient (IN) | payer SELFPAY ==
[~2020-09-15] VITALS: Ht 193 cm; Wt 163.3 kg
[~2020-09-15 17:55] MED LIST changes: +CIPRO500 MG PO
[2020-09-15] MEDS ORDERED: ONDANSETRON HCL INJ 2MG/ML 2ML 2 MG/ML VIAL IV STA (18:12)
[2020-09-15] MEDS ORDERED: MORPHINE SULFATE INJ 4 MG/ML INJ 1ML IV PRN (18:15)
[2020-09-15] MEDS ORDERED: SODIUM CHLORIDE 0.9% 1000ML 1,000 ML IV SCH (18:15)
[2020-09-15 18:32] LABS: BASOPHILS # (AUTO) 0.1 (0.0-0.1); BASOPHILS % 0.5 % (0.0-1.0); EOSINOPHILS # (AUTO) 0.3 (0.0-0.4); EOSINOPHILS % 2.4 % (0.0-6.0); HEMATOCRIT 45.7 % (38.2-49.6); HEMOGLOBIN 15.1 g/dL (14.0-18.0); LYMPHOCYTES # (AUTO) 1.4 (1.0-3.2); LYMPHOCYTES % 13.2 % (18.0-39.1); MEAN CORPUSCULAR HEMOGLOBIN 27.9 pg (28-32); MEAN CORPUSCULAR VOLUME 84.3 fL (81-99); MONOCYTES # (AUTO) 0.6 (0.2-0.8); MONOCYTES % 5.7 % (4.4-11.3); NEUTROPHILS # (AUTO) 7.9 (2.1-6.9); NEUTROPHILS % 77.8 % (38.7-80.0); PLATELET COUNT 295 x10e3/uL (140-360); RED BLOOD COUNT 5.42 x10e6/uL (4.3-5.7); RED CELL DISTRIBUTION WIDTH 12.7 % (11.7-14.4)
[2020-09-15 18:44] LABS: ALANINE AMINOTRANSFERASE 15 IU/L (0-55); ALBUMIN 3.4 g/dL (3.5-5.0); ALBUMIN/GLOBULIN RATIO 0.9 (0.8-2.0); ALKALINE PHOSPHATASE 108 IU/L (40-150); ANION GAP 15.5 mmol/L (8-16); BLOOD UREA NITROGEN 16 mg/dL (7-26); BUN/CREATININE RATIO 8 (6-25); CALCIUM 8.4 mg/dL (8.4-10.2); CARBON DIOXIDE 23 mmol/L (22-29); CHLORIDE 103 mmol/L (98-107); CREATINE KINASE 58 IU/L (30-200); CREATININE, SERUM 2.02 mg/dL (0.72-1.25); EST GLOMERULAR FILTRATION RATE 35 ML/MIN (60-); GLUCOSE 126 mg/dL (74-118); POTASSIUM 4.5 mmol/L (3.5-5.1); SODIUM 137 mmol/L (136-145)
[2020-09-15 18:55] LABS: CLARITY,URINE SL CLOUDY (CLEAR); COLOR,URINE STRAW (YELLOW); KETONES,URINE NEGATIVE (NEGATIVE); LEUKOCYTE ESTERASE ,URINE NEGATIVE (NEGATIVE); NITRITE,URINE NEGATIVE (NEGATIVE); PROTEIN,URINE DIPSTICK NEGATIVE (NEGATIVE); URINE UROBILINOGEN 0.2 mg/dL (0.2 - 1)
[2020-09-15 19:04] LABS: BACTERIA,URINE RARE /HPF; RBC,URINE 0-5 /HPF (0-5)
[2020-09-15] MEDS ORDERED: KETOROLAC TROMETHAMINE 30 MG/ML VIAL IV STA (19:18)
[2020-09-15] MEDS ORDERED: KETOROLAC TROMETHAMINE 30 MG/ML VIAL IM PRN (22:30)
[2020-09-15] MEDS ORDERED: ACETAMINOPHEN 325 MG TAB PO PRN (22:30)
[2020-09-15 22:45] VITALS: BP 134/76
[2020-09-15] MEDS ORDERED: HYDROMORPHONE 1MG/1ML INJ IV STA (23:00)
[2020-09-15] MEDS: SODIUM CHLORIDE 0.9% 1000ML 1,000 ML IV SCH (23:02)
[2020-09-15] MEDS: ONDANSETRON HCL INJ 2MG/ML 2ML 2 MG/ML VIAL IV PRN (23:02)
[2020-09-15 23:46] VITALS: BP 134/76
[2020-09-16] VITALS (8 sets, daily range): BP systolic 127–150; BP diastolic 75–87
[2020-09-16] MEDS: SODIUM CHLORIDE 0.9% 1000ML 1,000 ML IV SCH ×3 (02:16→21:41)
[2020-09-16] MEDS ORDERED: HYDROCODON-ACE1 EAC9 PO (02:21)
[2020-09-16] MEDS: HYDROMORPHONE 1MG/1ML INJ IV PRN ×7 (03:10→22:02)
[2020-09-16 04:50] LABS: BASOPHILS % 0.5 % (0.0-1.0); EOSINOPHILS # (AUTO) 0.3 (0.0-0.4); EOSINOPHILS % 4.1 % (0.0-6.0); HEMATOCRIT 41.1 % (38.2-49.6); HEMOGLOBIN 13.5 g/dL (14.0-18.0); LYMPHOCYTES # (AUTO) 1.9 (1.0-3.2); LYMPHOCYTES % 25.4 % (18.0-39.1); MEAN CORPUSCULAR HGB CONC 32.8 g/dL (31-35); MEAN CORPUSCULAR VOLUME 85.1 fL (81-99); MONOCYTES # (AUTO) 0.5 (0.2-0.8); NEUTROPHILS # (AUTO) 4.7 (2.1-6.9); NEUTROPHILS % 62.6 % (38.7-80.0); PLATELET COUNT 275 x10e3/uL (140-360); RED BLOOD COUNT 4.83 x10e6/uL (4.3-5.7); RED CELL DISTRIBUTION WIDTH 12.6 % (11.7-14.4)
[2020-09-16 05:03] LABS: INR 0.92; PROTHROMBIN TIME 12.9 seconds (11.9-14.5)
[2020-09-16 05:04] LABS: PARTIAL THROMBOPLASTIN TIME 31.5 seconds (23.8-35.5)
[2020-09-16 05:13] LABS: ALBUMIN 2.9 g/dL (3.5-5.0); ALBUMIN/GLOBULIN RATIO 0.9 (0.8-2.0); ANION GAP 12.9 mmol/L (8-16); CALCIUM 8.3 mg/dL (8.4-10.2); CREATININE, SERUM 1.92 mg/dL (0.72-1.25); POTASSIUM 3.9 mmol/L (3.5-5.1)
[2020-09-16] MEDS: ONDANSETRON HCL INJ 2MG/ML 2ML 2 MG/ML VIAL IV PRN ×4 (09:25→22:02)
[2020-09-16 11:16] LABS: CLARITY,URINE CLEAR (CLEAR); COLOR,URINE YELLOW (YELLOW); KETONES,URINE NEGATIVE (NEGATIVE); LEUKOCYTE ESTERASE ,URINE NEGATIVE (NEGATIVE); NITRITE,URINE NEGATIVE (NEGATIVE); PROTEIN,URINE DIPSTICK NEGATIVE (NEGATIVE); URINE UROBILINOGEN 0.2 mg/dL (0.2 - 1)
[2020-09-16 11:24] LABS: RBC,URINE >50 /HPF (0-5)
[2020-09-16 11:25] LABS: BACTERIA,URINE FEW /HPF; EPITHELIAL CELLS,URINE RARE /LPF
[2020-09-17] VITALS (7 sets, daily range): BP systolic 123–154; BP diastolic 75–93
[2020-09-17] MEDS: ONDANSETRON HCL INJ 2MG/ML 2ML 2 MG/ML VIAL IV PRN ×7 (01:07→22:04)
[2020-09-17] MEDS: HYDROMORPHONE 1MG/1ML INJ IV PRN ×8 (01:07→22:35)
[2020-09-17] MEDS: SODIUM CHLORIDE 0.9% 1000ML 1,000 ML IV SCH ×3 (04:32→19:32)
[2020-09-18 00:23] VITALS: BP 139/75
[2020-09-18] MEDS: SODIUM CHLORIDE 0.9% 1000ML 1,000 ML IV SCH ×4 (01:38→21:59)
[2020-09-18] MEDS: HYDROMORPHONE 1MG/1ML INJ IV PRN ×7 (01:39→21:30)
[2020-09-18] MEDS: ONDANSETRON HCL INJ 2MG/ML 2ML 2 MG/ML VIAL IV PRN ×3 (04:31→15:30)
[2020-09-18 10:10] LABS: ANION GAP 12.2 mmol/L (8-16); CALCIUM 8.2 mg/dL (8.4-10.2); CREATININE, SERUM 1.73 mg/dL (0.72-1.25); POTASSIUM 4.2 mmol/L (3.5-5.1)
[2020-09-19] MEDS: HYDROMORPHONE 1MG/1ML INJ IV PRN ×5 (00:38→12:30)
[2020-09-19] MEDS: ONDANSETRON HCL INJ 2MG/ML 2ML 2 MG/ML VIAL IV PRN ×2 (03:36→09:28)
[2020-09-19 04:53] LABS: BASOPHILS # (AUTO) 0.1 (0.0-0.1); BASOPHILS % 0.7 % (0.0-1.0); EOSINOPHILS # (AUTO) 0.3 (0.0-0.4); EOSINOPHILS % 4.4 % (0.0-6.0); HEMATOCRIT 40.1 % (38.2-49.6); LYMPHOCYTES # (AUTO) 1.4 (1.0-3.2); LYMPHOCYTES % 19.5 % (18.0-39.1); MEAN CORPUSCULAR HEMOGLOBIN 27.8 pg (28-32); MEAN CORPUSCULAR HGB CONC 32.4 g/dL (31-35); MEAN CORPUSCULAR VOLUME 85.9 fL (81-99); MONOCYTES # (AUTO) 0.6 (0.2-0.8); MONOCYTES % 7.5 % (4.4-11.3); NEUTROPHILS % 67.5 % (38.7-80.0); PLATELET COUNT 234 x10e3/uL (140-360); RED BLOOD COUNT 4.67 x10e6/uL (4.3-5.7); RED CELL DISTRIBUTION WIDTH 12.6 % (11.7-14.4)
[2020-09-19] MEDS: SODIUM CHLORIDE 0.9% 1000ML 1,000 ML IV SCH ×3 (04:54→21:14)
[2020-09-19 05:14] LABS: ALBUMIN 2.6 g/dL (3.5-5.0); ALBUMIN/GLOBULIN RATIO 0.8 (0.8-2.0); ANION GAP 11.3 mmol/L (8-16); CALCIUM 8.3 mg/dL (8.4-10.2); CREATININE, SERUM 1.83 mg/dL (0.72-1.25); POTASSIUM 4.3 mmol/L (3.5-5.1)
[2020-09-19] MEDS: BISACODYL 5 MG TAB EC PO SCH ×3 (07:11→18:00)
[2020-09-20] MEDS: SODIUM CHLORIDE 0.9% 1000ML 1,000 ML IV SCH ×3 (04:39→23:26)
[2020-09-20] MEDS: BISACODYL 5 MG TAB EC PO SCH ×5 (06:00→23:27)
[2020-09-20] MEDS: HYDROMORPHONE 1MG/1ML INJ IV PRN ×7 (09:41→22:57)
[2020-09-20] MEDS: ONDANSETRON HCL INJ 2MG/ML 2ML 2 MG/ML VIAL IV PRN ×2 (12:41→16:00)
[2020-09-20 16:00] VITALS: BP 140/70
[2020-09-20 20:00] VITALS: BP 144/76
[2020-09-20] MEDS ORDERED: BISACODYL 5 MG TAB EC PO PRN (23:30)
[2020-09-20 23:44] VITALS: BP 144/82
[2020-09-21] MEDS: SODIUM CHLORIDE 0.9% 1000ML 1,000 ML IV SCH ×4 (02:54→23:33)
[2020-09-21 04:00] VITALS: BP 148/86
[2020-09-21] MEDS: HYDROMORPHONE 1MG/1ML INJ IV PRN ×6 (04:30→23:33)
[2020-09-21 06:58] LABS: BASOPHILS % 0.4 % (0.0-1.0); EOSINOPHILS # (AUTO) 0.3 (0.0-0.4); EOSINOPHILS % 3.7 % (0.0-6.0); HEMATOCRIT 41.3 % (38.2-49.6); HEMOGLOBIN 13.5 g/dL (14.0-18.0); LYMPHOCYTES # (AUTO) 1.1 (1.0-3.2); LYMPHOCYTES % 13.5 % (18.0-39.1); MEAN CORPUSCULAR HEMOGLOBIN 27.7 pg (28-32); MEAN CORPUSCULAR HGB CONC 32.7 g/dL (31-35); MEAN CORPUSCULAR VOLUME 84.8 fL (81-99); MONOCYTES # (AUTO) 0.5 (0.2-0.8); MONOCYTES % 6.2 % (4.4-11.3); NEUTROPHILS # (AUTO) 5.9 (2.1-6.9); NEUTROPHILS % 76.1 % (38.7-80.0); PLATELET COUNT 278 x10e3/uL (140-360); RED BLOOD COUNT 4.87 x10e6/uL (4.3-5.7); RED CELL DISTRIBUTION WIDTH 12.4 % (11.7-14.4)
[2020-09-21 07:28] LABS: ALBUMIN 2.7 g/dL (3.5-5.0); ALBUMIN/GLOBULIN RATIO 0.8 (0.8-2.0); ANION GAP 10.5 mmol/L (8-16); CALCIUM 8.4 mg/dL (8.4-10.2); CREATININE, SERUM 1.7 mg/dL (0.72-1.25); POTASSIUM 4.5 mmol/L (3.5-5.1)
[2020-09-21 08:15] VITALS: BP 158/84
[2020-09-21 08:56] VITALS: BP 158/84
[2020-09-21 11:26] VITALS: BP 150/82
[2020-09-21] MEDS ORDERED: MIDAZOLAM HCL 2 MG/2 ML VIAL ONE (11:27)
[2020-09-21] MEDS ORDERED: FENTANYL CITRATE/PF 100MCG/2 ML INJ ONE (11:27)
[2020-09-21] MEDS ORDERED: IOPAMIDOL 300MG/ML 50ML INFUS..BTL IV ONE (12:41)
[2020-09-21] MEDS ORDERED: POVIDONE IODINE 0.05% 0.05 % ML PO ONE (13:31)
[2020-09-21] MEDS ORDERED: PROPOFOL IV EMULSION 10 MG/ML 20 ML VIAL ONE (13:31)
[2020-09-21] MEDS ORDERED: SEVOFLURANE INHAL SOLN 250 ML PEN BTL ONE (13:31)
[2020-09-21] MEDS ORDERED: ONDANSETRON HCL INJ 2MG/ML 2ML 2 MG/ML VIAL ONE (13:31)
[2020-09-21] MEDS ORDERED: DEXAMETHASONE SOD PHOS INJ 4 MG/ML VIAL ONE (13:31)
[2020-09-21] MEDS ORDERED: CEFTRIAXONE 1 GM VIAL ONE (13:31)
[2020-09-21] MEDS ORDERED: LIDOCAINE HCL 2% LOCAL INJ 5 ML SDV VIAL INJ ONE (13:31)
[2020-09-21 17:59] VITALS: BP 143/81
[2020-09-21] MEDS ORDERED: PHENAZOPYRIDINE HCL 100 MG TAB PO PRN (18:15)
[2020-09-21 20:00] VITALS: BP 161/88
[2020-09-21] MEDS: ONDANSETRON HCL INJ 2MG/ML 2ML 2 MG/ML VIAL IV PRN (20:54)
[2020-09-22] VITALS: BP 138/85
[2020-09-22] MEDS: SODIUM CHLORIDE 0.9% 1000ML 1,000 ML IV SCH (01:14)
[2020-09-22] MEDS: ONDANSETRON HCL INJ 2MG/ML 2ML 2 MG/ML VIAL IV PRN (03:01)
[2020-09-22] MEDS: HYDROMORPHONE 1MG/1ML INJ IV PRN ×2 (03:01→06:03)
[2020-09-22 04:00] VITALS: BP 138/74
[2020-09-22 07:26] VITALS: BP 137/75
== END 2020-09-22 08:48 | disposition home or self-care (01) | DRG 660 ==
LOC: ER 18:10 → ERHOLD 19:40 → IMCU 21:47 → MED/SURG2 09-17 17:03
PROVIDERS: ADMIT Internal Medicine; ATTEND Internal Medicine
PROC: 0T768DZ Dilation of Right Ureter with Intraluminal Device, Via Natural or Artificial Opening Endoscopic (ICD-10-PCS; 2020-09-21)
PROC: BT1F1ZZ Fluoroscopy of Left Kidney, Ureter and Bladder using Low Osmolar Contrast (ICD-10-PCS; principal; 2020-09-21 13:00)
DX: N13.6 Pyonephrosis (principal); Z68.41 Body mass index [BMI] 40.0-44.9, adult; N17.9 Acute kidney failure, unspecified; K21.9 Gastro-esophageal reflux disease without esophagitis; E11.9 Type 2 diabetes mellitus without complications; E83.51 Hypocalcemia; I10 Essential (primary) hypertension; E66.01 Morbid (severe) obesity due to excess calories; D64.9 Anemia, unspecified; Z20.822 Contact with and (suspected) exposure to COVID-19
CPT/HCPCS: 36415; 74018; 74176; 74420; 80048; 80053; 81001; 82550; 82553; 82948; 83036; 84484; 85025; 85610; 85730; 87086; 99284; C1758; C1769; C2617; J0696; J1100; J1170; J1885; J2001; J2250; J2405; J3010; J7030; U0002

== ENCOUNTER → 2020-10-21 | Day surgery (SDC) | payer OTHER ==
[~2020-10-21] MED LIST changes: +CEFTRIAXONE 1 GM VIAL ONE; +CIPRO250 MG PO; +DEXAMETHASONE SOD PHOS INJ 4 MG/ML VIAL ONE; +FENTANYL CITRATE/PF 100MCG/2 ML INJ ONE; +HYDROCODON-ACE1 EAC9 PO; +IOPAMIDOL 300MG/ML 50ML INFUS..BTL IV ONE; +LIDOCAINE HCL 2% LOCAL INJ 5 ML SDV VIAL INJ ONE; +MIDAZOLAM HCL 2 MG/2 ML VIAL ONE; +ONDANSETRON HCL INJ 2MG/ML 2ML 2 MG/ML VIAL ONE; +POVIDONE IODINE 0.05% 0.05 % ML PO ONE; +PROPOFOL IV EMULSION 10 MG/ML 20 ML VIAL ONE; +SEVOFLURANE INHAL SOLN 250 ML PEN BTL ONE; +SODIUM CHLORIDE 0.9% 50ML 50 ML ONE; +TYLENOL 3
[2020-10-21 12:30] VITALS: BP 133/83
== END | disposition home or self-care (01) ==
LOC: OR 07:58
PROVIDERS: ATTEND Urology
DX: N20.0 Calculus of kidney (principal); Z46.6 Encounter for fitting and adjustment of urinary device; N13.30 Unspecified hydronephrosis; N40.0 Benign prostatic hyperplasia without lower urinary tract symptoms; G47.33 Obstructive sleep apnea (adult) (pediatric); I45.10 Unspecified right bundle-branch block; E66.01 Morbid (severe) obesity due to excess calories; Z88.6 Allergy status to analgesic agent; Z88.8 Allergy status to other drugs, medicaments and biological substances; Z01.812 Encounter for preprocedural laboratory examination; Z01.818 Encounter for other preprocedural examination; Z20.822 Contact with and (suspected) exposure to COVID-19; Z68.41 Body mass index [BMI] 40.0-44.9, adult; Z80.42 Family history of malignant neoplasm of prostate
CPT/HCPCS: 50590; 52332; 74018; C1758; C1769; C2617; J0696; J1100; J2001; J2405; J2704; J3010; Q9967; U0002; J2250

== ENCOUNTER 2020-11-12 23:44 | Inpatient (IN) | payer OTHER ==
[~2020-11-12] VITALS: Ht 193 cm; Wt 163.3 kg
[~2020-11-12 23:44] MED LIST changes: -CEFTRIAXONE 1 GM VIAL ONE; -DEXAMETHASONE SOD PHOS INJ 4 MG/ML VIAL ONE; -FENTANYL CITRATE/PF 100MCG/2 ML INJ ONE; -IOPAMIDOL 300MG/ML 50ML INFUS..BTL IV ONE; -LIDOCAINE HCL 2% LOCAL INJ 5 ML SDV VIAL INJ ONE; -MIDAZOLAM HCL 2 MG/2 ML VIAL ONE; -ONDANSETRON HCL INJ 2MG/ML 2ML 2 MG/ML VIAL ONE; -POVIDONE IODINE 0.05% 0.05 % ML PO ONE; -PROPOFOL IV EMULSION 10 MG/ML 20 ML VIAL ONE; -SEVOFLURANE INHAL SOLN 250 ML PEN BTL ONE; -SODIUM CHLORIDE 0.9% 50ML 50 ML ONE
[2020-11-13] MEDS ORDERED: SODIUM CHLORIDE 0.9% 1000ML 1,000 ML IV STA (00:15)
[2020-11-13] MEDS: CEFTRIAXONE 1 GM in SODIUM CHLORIDE 0.9% 50ML 50 ML IV SCH (00:38)
[2020-11-13 00:43] LABS: BASOPHILS # (AUTO) 0.1 (0.0-0.1); BASOPHILS % 0.5 % (0.0-1.0); EOSINOPHILS # (AUTO) 0.1 (0.0-0.4); EOSINOPHILS % 0.4 % (0.0-6.0); HEMATOCRIT 44.8 % (38.2-49.6); HEMOGLOBIN 14.7 g/dL (14.0-18.0); LYMPHOCYTES # (AUTO) 0.9 (1.0-3.2); LYMPHOCYTES % 5.3 % (18.0-39.1); MEAN CORPUSCULAR HEMOGLOBIN 27.7 pg (28-32); MEAN CORPUSCULAR HGB CONC 32.8 g/dL (31-35); MEAN CORPUSCULAR VOLUME 84.4 fL (81-99); MONOCYTES # (AUTO) 1.2 (0.2-0.8); NEUTROPHILS # (AUTO) 14.2 (2.1-6.9); NEUTROPHILS % 86.3 % (38.7-80.0); PLATELET COUNT 318 x10e3/uL (140-360); RED BLOOD COUNT 5.31 x10e6/uL (4.3-5.7); RED CELL DISTRIBUTION WIDTH 13.1 % (11.7-14.4)
[2020-11-13 01:08] LABS: ALBUMIN 3.6 g/dL (3.5-5.0); ALBUMIN/GLOBULIN RATIO 0.8 (0.8-2.0); CALCIUM 9.9 mg/dL (8.4-10.2); CREATININE, SERUM 1.38 mg/dL (0.72-1.25)
[2020-11-13 01:11] LABS: CLARITY,URINE TURBID (CLEAR); COLOR,URINE AMBER (YELLOW); KETONES,URINE NEGATIVE (NEGATIVE); LEUKOCYTE ESTERASE ,URINE LARGE (NEGATIVE); NITRITE,URINE NEGATIVE (NEGATIVE); PROTEIN,URINE DIPSTICK 1+ (NEGATIVE); URINE UROBILINOGEN 0.2 mg/dL (0.2 - 1)
[2020-11-13 01:12] LABS: BACTERIA,URINE MANY /HPF; EPITHELIAL CELLS,URINE MODERATE /LPF; RBC,URINE >50 /HPF (0-5); WBC,URINE (MAN) >50 /HPF (0-5)
[2020-11-13 01:30] LABS: CREATINE KINASE MB 0.7 ng/mL (0-5.0)
[2020-11-13] MEDS ORDERED: ACETAMINOPHEN 325 MG TAB ONE (02:37)
[2020-11-13] MEDS: ACETAMINOPHEN 325 MG TAB PO PRN (02:41)
[2020-11-13 03:15] VITALS: BP 153/95
[2020-11-13] MEDS ORDERED: ACETAMINOPHEN/1 EAC1 PO (04:21)
[2020-11-13] MEDS ORDERED: IOPAMIDOL 370 MG/ML 200 ML INFUS..BTL INJ ONE (04:43)
[2020-11-13] MEDS ORDERED: SODIUM CHLORIDE 0.9% 50ML 50 ML ONE (04:44)
[2020-11-13] MEDS ORDERED: ONDANSETRON HCL INJ 2MG/ML 2ML 2 MG/ML VIAL IV PRN (05:30)
[2020-11-13] MEDS: HYDROMORPHONE 1MG/1ML INJ IV PRN ×6 (05:41→21:02)
[2020-11-13 08:17] VITALS: BP 135/75
[2020-11-13] MEDS: ONDANSETRON HCL INJ 2MG/ML 2ML 2 MG/ML VIAL IV PRN ×4 (12:02→21:02)
[2020-11-13 12:36] VITALS: BP 126/80
[2020-11-13] MEDS ORDERED: PANTOPRAZOLE SOD 40 MG TABEC PO ONE (13:00)
[2020-11-13] MEDS: DEXTROSE 5%/0.45% SOD CHL 1,000 ML IV SCH ×2 (14:58→21:45)
[2020-11-13 16:22] VITALS: BP 124/84
[2020-11-13 20:00] VITALS: BP 119/76
[2020-11-13 20:47] VITALS: BP 119/76
[2020-11-14] VITALS (8 sets, daily range): BP systolic 103–134; BP diastolic 49–89
[2020-11-14] MEDS: ONDANSETRON HCL INJ 2MG/ML 2ML 2 MG/ML VIAL IV PRN ×8 (00:02→21:29)
[2020-11-14] MEDS: HYDROMORPHONE 1MG/1ML INJ IV PRN ×8 (00:02→21:29)
[2020-11-14] MEDS: ACETAMINOPHEN 325 MG TAB PO PRN (00:07)
[2020-11-14] MEDS: DEXTROSE 5%/0.45% SOD CHL 1,000 ML IV SCH ×2 (04:56→09:49)
[2020-11-14 04:59] LABS: BASOPHILS % 0.4 % (0.0-1.0); EOSINOPHILS # (AUTO) 0.2 (0.0-0.4); EOSINOPHILS % 2.1 % (0.0-6.0); HEMATOCRIT 39.9 % (38.2-49.6); HEMOGLOBIN 12.8 g/dL (14.0-18.0); LYMPHOCYTES # (AUTO) 0.9 (1.0-3.2); LYMPHOCYTES % 11.3 % (18.0-39.1); MEAN CORPUSCULAR HEMOGLOBIN 27.6 pg (28-32); MEAN CORPUSCULAR HGB CONC 32.1 g/dL (31-35); MEAN CORPUSCULAR VOLUME 86.2 fL (81-99); MONOCYTES # (AUTO) 0.7 (0.2-0.8); MONOCYTES % 8.8 % (4.4-11.3); NEUTROPHILS # (AUTO) 6.2 (2.1-6.9); NEUTROPHILS % 77.1 % (38.7-80.0); PLATELET COUNT 246 x10e3/uL (140-360); RED BLOOD COUNT 4.63 x10e6/uL (4.3-5.7)
[2020-11-14 05:31] LABS: ALBUMIN 2.8 g/dL (3.5-5.0); ALBUMIN/GLOBULIN RATIO 0.7 (0.8-2.0); ANION GAP 12.7 mmol/L (8-16); CALCIUM 8.6 mg/dL (8.4-10.2); CREATININE, SERUM 1.2 mg/dL (0.72-1.25); POTASSIUM 3.7 mmol/L (3.5-5.1)
[2020-11-14] MEDS: PANTOPRAZOLE SOD 40 MG TABEC PO SCH (09:00)
[2020-11-14] MEDS: CEFTRIAXONE 1 GM in SODIUM CHLORIDE 0.9% 50ML 50 ML IV SCH (09:00)
[2020-11-15] VITALS (8 sets, daily range): BP systolic 93–139; BP diastolic 59–89
[2020-11-15] MEDS: DEXTROSE 5%/0.45% SOD CHL 1,000 ML IV SCH ×4 (00:29→22:03)
[2020-11-15] MEDS: ONDANSETRON HCL INJ 2MG/ML 2ML 2 MG/ML VIAL IV PRN ×8 (00:29→23:00)
[2020-11-15] MEDS: HYDROMORPHONE 1MG/1ML INJ IV PRN ×8 (00:29→23:00)
[2020-11-15] MEDS: BISACODYL 5 MG TAB EC PO PRN ×2 (06:09→17:00)
[2020-11-15] MEDS: CEFTRIAXONE 1 GM in SODIUM CHLORIDE 0.9% 50ML 50 ML IV SCH (08:33)
[2020-11-15] MEDS: PANTOPRAZOLE SOD 40 MG TABEC PO SCH (08:33)
[2020-11-15] MEDS ORDERED: MINERAL OIL 132 ML BTL PR ONE (17:45)
[2020-11-16] VITALS (8 sets, daily range): BP systolic 106–134; BP diastolic 75–88
[2020-11-16] MEDS: HYDROMORPHONE 1MG/1ML INJ IV PRN ×8 (02:05→22:53)
[2020-11-16] MEDS: ONDANSETRON HCL INJ 2MG/ML 2ML 2 MG/ML VIAL IV PRN ×6 (02:05→22:53)
[2020-11-16] MEDS: DEXTROSE 5%/0.45% SOD CHL 1,000 ML IV SCH ×3 (05:00→19:52)
[2020-11-16 06:15] LABS: BASOPHILS % 0.5 % (0.0-1.0); EOSINOPHILS # (AUTO) 0.3 (0.0-0.4); HEMATOCRIT 40.7 % (38.2-49.6); HEMOGLOBIN 13.1 g/dL (14.0-18.0); LYMPHOCYTES # (AUTO) 1.4 (1.0-3.2); LYMPHOCYTES % 21.8 % (18.0-39.1); MEAN CORPUSCULAR HEMOGLOBIN 27.6 pg (28-32); MEAN CORPUSCULAR HGB CONC 32.2 g/dL (31-35); MEAN CORPUSCULAR VOLUME 85.7 fL (81-99); MONOCYTES # (AUTO) 0.7 (0.2-0.8); MONOCYTES % 11.4 % (4.4-11.3); NEUTROPHILS % 61.8 % (38.7-80.0); PLATELET COUNT 264 x10e3/uL (140-360); RED BLOOD COUNT 4.75 x10e6/uL (4.3-5.7); RED CELL DISTRIBUTION WIDTH 12.8 % (11.7-14.4)
[2020-11-16 06:58] LABS: ALBUMIN 2.7 g/dL (3.5-5.0); ALBUMIN/GLOBULIN RATIO 0.8 (0.8-2.0); ANION GAP 14.9 mmol/L (8-16); CALCIUM 8.8 mg/dL (8.4-10.2); CREATININE, SERUM 1.15 mg/dL (0.72-1.25); POTASSIUM 3.9 mmol/L (3.5-5.1)
[2020-11-16] MEDS: PANTOPRAZOLE SOD 40 MG TABEC PO SCH (08:10)
[2020-11-16] MEDS: CEFTRIAXONE 1 GM in SODIUM CHLORIDE 0.9% 50ML 50 ML IV SCH (08:10)
[2020-11-17] VITALS: BP 125/83
[2020-11-17] MEDS: HYDROMORPHONE 1MG/1ML INJ IV PRN ×3 (02:00→08:00)
[2020-11-17] MEDS: ONDANSETRON HCL INJ 2MG/ML 2ML 2 MG/ML VIAL IV PRN ×2 (02:00→04:51)
[2020-11-17] MEDS: DEXTROSE 5%/0.45% SOD CHL 1,000 ML IV SCH (02:07)
[2020-11-17 04:00] VITALS: BP 116/65
[2020-11-17 07:27] VITALS: BP 131/80
[2020-11-17] MEDS: PANTOPRAZOLE SOD 40 MG TABEC PO SCH (08:00)
[2020-11-17] MEDS: CEFTRIAXONE 1 GM in SODIUM CHLORIDE 0.9% 50ML 50 ML IV SCH (08:00)
[2020-11-22] MEDS ORDERED: CIPRO500 MG PO (12:05)
== END 2020-11-17 10:12 | disposition home or self-care (01) | DRG 698 ==
LOC: ER 11-13 00:12 → ERHOLD 11-13 01:52 → MED/SURG2 11-13 03:16
PROVIDERS: ADMIT Internal Medicine; ATTEND Internal Medicine
DX: T83.593A Infection and inflammatory reaction due to other urinary stents, initial encounter (principal); A41.9 Sepsis, unspecified organism; N13.6 Pyonephrosis; Z68.41 Body mass index [BMI] 40.0-44.9, adult; N39.0 Urinary tract infection, site not specified; E66.01 Morbid (severe) obesity due to excess calories; K21.9 Gastro-esophageal reflux disease without esophagitis; I12.9 Hypertensive chronic kidney disease with stage 1 through stage 4 chronic kidney disease, or unspecified chronic kidney disease; N18.30 Chronic kidney disease, stage 3 unspecified; N40.0 Benign prostatic hyperplasia without lower urinary tract symptoms; D64.9 Anemia, unspecified; Z20.822 Contact with and (suspected) exposure to COVID-19
CPT/HCPCS: 36415; 74177; 80053; 81001; 82550; 82553; 83605; 83735; 84484; 85025; 87040; 87071; 87086; 87186; 87205; 96361; 99284; J0696; J1170; J2405; J7030; Q9967; U0002

== ENCOUNTER → 2020-11-25 | Day surgery (SDC) | payer OTHER ==
[~2020-11-25] MED LIST changes: +ACETAMINOPHEN/1 EAC1 PO; +GENTAMICIN 80MG/NS 100 ML 200 ML IV ONE; +IOPAMIDOL 300MG/ML 50ML INFUS..BTL IV ONE
[2020-11-25 10:03] VITALS: BP 133/76
== END | disposition home or self-care (01) ==
LOC: OR 06:57
PROVIDERS: ATTEND Urology
DX: N13.39 Other hydronephrosis (principal); E66.01 Morbid (severe) obesity due to excess calories; I10 Essential (primary) hypertension; N40.1 Benign prostatic hyperplasia with lower urinary tract symptoms; K21.9 Gastro-esophageal reflux disease without esophagitis; Z87.442 Personal history of urinary calculi; Z96.0 Presence of urogenital implants; Z88.5 Allergy status to narcotic agent; Z88.8 Allergy status to other drugs, medicaments and biological substances; Z68.41 Body mass index [BMI] 40.0-44.9, adult; Z01.810 Encounter for preprocedural cardiovascular examination; Z01.812 Encounter for preprocedural laboratory examination; Z20.822 Contact with and (suspected) exposure to COVID-19
CPT/HCPCS: 52353; 74420; 88300; 93005; C1769; J1580; Q9967; U0002

== ENCOUNTER 2021-08-31 12:17 | Observation (INO) | payer BC, OTHER ==
[~2021-08-31] VITALS: Ht 188 cm; Wt 158.8 kg
[~2021-08-31 12:17] MED LIST changes: -GENTAMICIN 80MG/NS 100 ML 200 ML IV ONE; -IOPAMIDOL 300MG/ML 50ML INFUS..BTL IV ONE
[2021-08-31 12:54] LABS: BASOPHILS % 0.3 % (0.0-1.0); EOSINOPHILS # (AUTO) 0.1 (0.0-0.4); EOSINOPHILS % 1.1 % (0.0-6.0); HEMATOCRIT 48.2 % (38.2-49.6); HEMOGLOBIN 15.5 g/dL (14.0-18.0); LYMPHOCYTES # (AUTO) 1.6 (1.0-3.2); LYMPHOCYTES % 13.5 % (18.0-39.1); MEAN CORPUSCULAR HEMOGLOBIN 28.4 pg (28-32); MEAN CORPUSCULAR HGB CONC 32.2 g/dL (31-35); MEAN CORPUSCULAR VOLUME 88.4 fL (81-99); MONOCYTES # (AUTO) 0.6 (0.2-0.8); MONOCYTES % 4.9 % (4.4-11.3); NEUTROPHILS # (AUTO) 9.2 (2.1-6.9); PLATELET COUNT 324 x10e3/uL (140-360); RED BLOOD COUNT 5.45 x10e6/uL (4.3-5.7); RED CELL DISTRIBUTION WIDTH 13.4 % (11.7-14.4)
[2021-08-31] MEDS ORDERED: SODIUM CHLORIDE FLUSH 10 ML SYR INJ PRN (13:00)
[2021-08-31] MEDS ORDERED: ONDANSETRON HCL INJ 2MG/ML 2ML 2 MG/ML VIAL IV PRN (13:00)
[2021-08-31 13:05] LABS: INR 0.89; PROTHROMBIN TIME 12.9 seconds (11.9-14.5)
[2021-08-31 13:06] LABS: PARTIAL THROMBOPLASTIN TIME 31.1 seconds (23.8-35.5)
[2021-08-31 13:13] LABS: ALANINE AMINOTRANSFERASE 25 IU/L (0-55); ALBUMIN 3.6 g/dL (3.5-5.0); ALBUMIN/GLOBULIN RATIO 0.9 (0.8-2.0); ALKALINE PHOSPHATASE 117 IU/L (40-150); ANION GAP 15.3 mmol/L (8-16); BLOOD UREA NITROGEN 12 mg/dL (7-26); BUN/CREATININE RATIO 10 (6-25); CALCIUM 8.8 mg/dL (8.4-10.2); CARBON DIOXIDE 25 mmol/L (22-29); CHLORIDE 104 mmol/L (98-107); CREATINE KINASE 144 IU/L (30-200); CREATININE, SERUM 1.21 mg/dL (0.72-1.25); GLUCOSE 130 mg/dL (74-118); MAGNESIUM 1.8 MG/DL (1.3-2.1); POTASSIUM 4.3 mmol/L (3.5-5.1); SODIUM 140 mmol/L (136-145)
[2021-08-31] MEDS ORDERED: ACETAMINOPHEN 325 MG TAB PO ONE (13:30)
[2021-08-31 13:36] LABS: CLARITY,URINE CLEAR (CLEAR); COLOR,URINE YELLOW (YELLOW); KETONES,URINE NEGATIVE (NEGATIVE); LEUKOCYTE ESTERASE ,URINE NEGATIVE (NEGATIVE); NITRITE,URINE NEGATIVE (NEGATIVE); PROTEIN,URINE DIPSTICK NEGATIVE (NEGATIVE)
[2021-08-31 13:37] LABS: URINE UROBILINOGEN 0.2 mg/dL (0.2 - 1)
[2021-08-31 14:00] LABS: BACTERIA,URINE MODERATE /HPF; RBC,URINE 0-5 /HPF (0-5); WBC,URINE (MAN) 0-5 /HPF (0-5)
[2021-08-31 14:02] LABS: EPITHELIAL CELLS,URINE MODERATE /LPF; HYALINE CASTS 0-1 (0-1)
[2021-08-31 15:55] VITALS: BP 114/79
[2021-08-31 16:15] VITALS: BP 114/79
[2021-08-31 16:29] VITALS: BP 114/79
[2021-08-31 20:00] VITALS: BP 131/78
[2021-08-31] MEDS ORDERED: ACETAMINOPHEN 325 MG TAB PO PRN (20:02)
[2021-08-31 20:39] LABS: CREATINE KINASE 127 IU/L (30-200)
[2021-09-01] VITALS: BP_SYST 109; BP_SYST 131; BP_DIAS 67; BP_DIAS 78
[2021-09-01 04:00] VITALS: BP 110/68
[2021-09-01 05:27] LABS: BASOPHILS # (AUTO) 0.1 (0.0-0.1); BASOPHILS % 0.8 % (0.0-1.0); EOSINOPHILS # (AUTO) 0.3 (0.0-0.4); EOSINOPHILS % 3.3 % (0.0-6.0); HEMOGLOBIN 14.4 g/dL (14.0-18.0); LYMPHOCYTES # (AUTO) 1.7 (1.0-3.2); LYMPHOCYTES % 21.3 % (18.0-39.1); MEAN CORPUSCULAR HEMOGLOBIN 28.3 pg (28-32); MEAN CORPUSCULAR VOLUME 88.6 fL (81-99); MONOCYTES # (AUTO) 0.5 (0.2-0.8); MONOCYTES % 6.6 % (4.4-11.3); NEUTROPHILS # (AUTO) 5.4 (2.1-6.9); NEUTROPHILS % 67.7 % (38.7-80.0); PLATELET COUNT 273 x10e3/uL (140-360); RED BLOOD COUNT 5.08 x10e6/uL (4.3-5.7); RED CELL DISTRIBUTION WIDTH 13.2 % (11.7-14.4)
[2021-09-01 05:48] LABS: ALBUMIN 3.1 g/dL (3.5-5.0); ALBUMIN/GLOBULIN RATIO 0.9 (0.8-2.0); ANION GAP 14.1 mmol/L (8-16); CALCIUM 8.4 mg/dL (8.4-10.2); CREATININE, SERUM 1.17 mg/dL (0.72-1.25); POTASSIUM 4.1 mmol/L (3.5-5.1)
[2021-09-01 06:05] LABS: CREATINE KINASE 116 IU/L (30-200)
[2021-09-01 06:37] LABS: CHOL/HDL RATIO 8.4 (3.9-4.7)
[2021-09-01 06:43] LABS: THYROID STIMULATING HORMONE 1.746 uIU/mL (0.350-4.940)
[2021-09-01 08:23] VITALS: BP 103/72
[2021-09-01 11:24] VITALS: BP 103/72
[2021-09-01 12:14] VITALS: BP 119/78
== END 2021-09-01 13:00 | disposition home or self-care (01) ==
LOC: ER 12:20 → ERHOLD 12:47 → MED/SURG 14:53
PROVIDERS: ADMIT Family Medicine; ATTEND Family Medicine
DX: R00.2 Palpitations (principal); R94.31 Abnormal electrocardiogram [ECG] [EKG]; K21.9 Gastro-esophageal reflux disease without esophagitis; I10 Essential (primary) hypertension; E66.9 Obesity, unspecified; Z87.442 Personal history of urinary calculi; Z82.49 Family history of ischemic heart disease and other diseases of the circulatory system; Z68.41 Body mass index [BMI] 40.0-44.9, adult
CPT/HCPCS: 36415 ×2; 71045 ×2; 80053 ×2; 80061; 80329; 81001; 82550 ×2; 82553 ×2; 83036; 83735; 84443; 84484 ×2; 85025 ×2; 85379; 85610; 85730; 93005 ×2; 93306; 99284; G0378 ×2

== ENCOUNTER → 2021-12-28 | Day surgery (SDC) | payer BC ==
[2021-12-25 12:37] LABS: BASOPHILS # (AUTO) 0.1 (0.0-0.1); BASOPHILS % 0.7 % (0.0-1.0); EOSINOPHILS # (AUTO) 0.4 (0.0-0.4); HEMATOCRIT 49.5 % (38.2-49.6); HEMOGLOBIN 15.1 g/dL (14.0-18.0); LYMPHOCYTES # (AUTO) 1.6 (1.0-3.2); LYMPHOCYTES % 18.2 % (18.0-39.1); MEAN CORPUSCULAR HEMOGLOBIN 27.9 pg (28-32); MEAN CORPUSCULAR HGB CONC 30.5 g/dL (31-35); MEAN CORPUSCULAR VOLUME 91.3 fL (81-99); MONOCYTES # (AUTO) 0.5 (0.2-0.8); MONOCYTES % 6.1 % (4.4-11.3); NEUTROPHILS # (AUTO) 6.3 (2.1-6.9); NEUTROPHILS % 70.8 % (38.7-80.0); PLATELET COUNT 362 x10e3/uL (140-360); RED BLOOD COUNT 5.42 x10e6/uL (4.3-5.7); RED CELL DISTRIBUTION WIDTH 13.5 % (11.7-14.4)
[~2021-12-28] MED LIST changes: +ACETAMINOPHEN-1 EAC4 PEG; +ACETAMINOPHEN-1 EAC4 PO; +ALLOPURINOL100 MG PO; +BLACK ELDERBER1 EACH PO; +FENTANYL CITRATE/PF 100MCG/2 ML INJ ONE; +FLOMAX0.4 MG PO; +LIDOCAINE HCL 2% LOCAL INJ 5 ML SDV VIAL INJ ONE; +MIDAZOLAM HCL 2 MG/2 ML VIAL ONE; +ONDANSETRON ODT4 MG PO; +PHENTERMINE H37.5 MG PO; +PROPOFOL IV EMULSION 10 MG/ML 20 ML VIAL ONE
[2021-12-28 07:42] VITALS: BP 136/74
== END | disposition home or self-care (01) ==
LOC: OR 05:55
PROVIDERS: ATTEND Internal Medicine Gastroenterology
DX: K57.30 Diverticulosis of large intestine without perforation or abscess without bleeding (principal); K64.8 Other hemorrhoids; K21.9 Gastro-esophageal reflux disease without esophagitis; K29.50 Unspecified chronic gastritis without bleeding; E11.9 Type 2 diabetes mellitus without complications; G47.30 Sleep apnea, unspecified; K25.9 Gastric ulcer, unspecified as acute or chronic, without hemorrhage or perforation; E66.01 Morbid (severe) obesity due to excess calories; G47.33 Obstructive sleep apnea (adult) (pediatric); Z68.41 Body mass index [BMI] 40.0-44.9, adult; Z87.442 Personal history of urinary calculi; Z87.11 Personal history of peptic ulcer disease; Z99.81 Dependence on supplemental oxygen; Z01.810 Encounter for preprocedural cardiovascular examination; Z01.812 Encounter for preprocedural laboratory examination; Z20.822 Contact with and (suspected) exposure to COVID-19; Z88.8 Allergy status to other drugs, medicaments and biological substances
CPT/HCPCS: 0223U; 36415 ×2; 45378; 82948; 85025; 88305; 88342; 93005; J2001; J2704; 43239; 88312; J2250; J3010

== ENCOUNTER 2022-01-01 13:21 | Emergency (ER) | payer BC ==
[~2022-01-01] VITALS: Ht 190.5 cm; Wt 166.5 kg
[~2022-01-01 13:21] MED LIST changes: -ACETAMINOPHEN-1 EAC4 PEG; -ACETAMINOPHEN-1 EAC4 PO; -FENTANYL CITRATE/PF 100MCG/2 ML INJ ONE; -FLOMAX0.4 MG PO; -LIDOCAINE HCL 2% LOCAL INJ 5 ML SDV VIAL INJ ONE; -MIDAZOLAM HCL 2 MG/2 ML VIAL ONE; -ONDANSETRON ODT4 MG PO; -PROPOFOL IV EMULSION 10 MG/ML 20 ML VIAL ONE
[2022-01-01] MEDS ORDERED: TAMSULOSIN HCL 0.4 MG CAP PO ONE (13:45)
[2022-01-01] MEDS ORDERED: SODIUM CHLORIDE 0.9% 1000ML 1,000 ML IV ONE (13:45)
[2022-01-01] MEDS ORDERED: ONDANSETRON HCL INJ 2MG/ML 2ML 2 MG/ML VIAL IV PRN (13:45)
[2022-01-01] MEDS ORDERED: FENTANYL CITRATE/PF 100MCG/2 ML INJ IV ONE (13:45)
[2022-01-01 13:59] LABS: BASOPHILS # (AUTO) 0.1 (0.0-0.1); BASOPHILS % 0.4 % (0.0-1.0); EOSINOPHILS # (AUTO) 0.3 (0.0-0.4); HEMATOCRIT 48.3 % (38.2-49.6); HEMOGLOBIN 14.9 g/dL (14.0-18.0); LYMPHOCYTES # (AUTO) 1.8 (1.0-3.2); LYMPHOCYTES % 14.4 % (18.0-39.1); MEAN CORPUSCULAR HEMOGLOBIN 27.9 pg (28-32); MEAN CORPUSCULAR HGB CONC 30.8 g/dL (31-35); MEAN CORPUSCULAR VOLUME 90.3 fL (81-99); MONOCYTES # (AUTO) 0.7 (0.2-0.8); MONOCYTES % 5.5 % (4.4-11.3); NEUTROPHILS # (AUTO) 9.8 (2.1-6.9); NEUTROPHILS % 77.4 % (38.7-80.0); PLATELET COUNT 358 x10e3/uL (140-360); RED BLOOD COUNT 5.35 x10e6/uL (4.3-5.7); RED CELL DISTRIBUTION WIDTH 13.1 % (11.7-14.4)
[2022-01-01 14:08] LABS: CLARITY,URINE CLEAR (CLEAR); COLOR,URINE YELLOW (YELLOW); KETONES,URINE NEGATIVE (NEGATIVE); LEUKOCYTE ESTERASE ,URINE NEGATIVE (NEGATIVE); NITRITE,URINE NEGATIVE (NEGATIVE); PROTEIN,URINE DIPSTICK NEGATIVE (NEGATIVE); URINE UROBILINOGEN 0.2 mg/dL (0.2 - 1)
[2022-01-01 14:21] LABS: ALBUMIN 3.5 g/dL (3.5-5.0); ALBUMIN/GLOBULIN RATIO 1.1 (0.8-2.0); ANION GAP 14.4 mmol/L (8-16); CALCIUM 9.3 mg/dL (8.4-10.2); CREATININE, SERUM 1.27 mg/dL (0.72-1.25); POTASSIUM 4.4 mmol/L (3.5-5.1)
[2022-01-01] MEDS ORDERED: FLOMAX0.4 MG PO (14:54)
[2022-01-01] MEDS ORDERED: ONDANSETRON ODT4 MG PO (14:54)
[2022-01-01] MEDS ORDERED: ACETAMINOPHEN-1 EAC4 PEG (14:54)
[2022-01-01 15:08] LABS: RBC,URINE 0-5 /HPF (0-5); WBC,URINE (MAN) 0-5 /HPF (0-5)
[2022-01-04] MEDS ORDERED: ACETAMINOPHEN-1 EAC4 PO (15:34)
== END 2022-01-01 15:53 | disposition home or self-care (01) ==
LOC: ER 13:32
DX: R10.31 Right lower quadrant pain (principal); N20.0 Calculus of kidney; K57.90 Diverticulosis of intestine, part unspecified, without perforation or abscess without bleeding; R11.0 Nausea
CPT/HCPCS: 36415; 74176; 80053; 81001; 85025; 99284; J2405; J3010; J7030

== ENCOUNTER 2022-01-14 14:38 | Emergency (ER) | payer BC ==
[~2022-01-14] VITALS: Ht 190.5 cm; Wt 166.5 kg
[~2022-01-14 14:38] MED LIST changes: +ACETAMINOPHEN-1 EAC4 PEG; +ACETAMINOPHEN-1 EAC4 PO; +FLOMAX0.4 MG PO; +ONDANSETRON ODT4 MG PO
[2022-01-14 15:15] VITALS: BP 135/71
[2022-01-14] MEDS ORDERED: TRIAMCINOLONE A15 G1 TOP (15:17)
[2022-01-16] MEDS ORDERED: MIRALAX17 GM PO (08:23)
[2022-01-16] MEDS ORDERED: [UNRECOGNIZED DRUG - OTHER] PO (08:23)
[2022-01-16] MEDS ORDERED: KENALOG IM (08:24)
[2022-01-16] MEDS ORDERED: DECADRON4 M1 IM (08:24)
[2022-01-16] MEDS ORDERED: ULTRAM50 MG IM (08:24)
[2022-01-16] MEDS ORDERED: CIALIS5 MG PEG (10:43)
[2022-01-16] MEDS ORDERED: KETOROLAC TROME10 MG PO (10:52)
== END 2022-01-14 15:25 | disposition home or self-care (01) ==
LOC: ER 14:43
DX: K62.5 Hemorrhage of anus and rectum (principal); K64.4 Residual hemorrhoidal skin tags; Z87.442 Personal history of urinary calculi
CPT/HCPCS: 99283

== ENCOUNTER → 2022-01-16 | Day surgery (SDC) | payer BC ==
[~2022-01-16] MED LIST changes: +BUPIVACAINE 0.25% 30ML SDV ONE; +BUPIVACAINE 0.5%/EPI 30 ML SDV INJ ONE; +CIALIS5 MG PEG; +DECADRON4 M1 IM; +FENTANYL CITRATE/PF 100MCG/2 ML INJ ONE; +HYDROCODONE/APAP 7.5MG-325MG 1 EA TAB ONE; +KENALOG IM; +KETOROLAC TROME10 MG PO; +LIDOCAINE HCL 1% LOCAL INJ 20 ML VIAL ONE; +LIDOCAINE JELLY 2% 10ML URO-JET ONE; +MIDAZOLAM HCL 2 MG/2 ML VIAL ONE; +MIRALAX17 GM PO; +TRIAMCINOLONE A15 G1 TOP; +ULTRAM50 MG IM; +[UNRECOGNIZED DRUG - OTHER] PO
[2022-01-16 14:40] VITALS: BP 142/89
== END | disposition home or self-care (01) ==
LOC: OR 09:57
PROVIDERS: ATTEND Surgery
DX: K64.5 Perianal venous thrombosis (principal); K59.00 Constipation, unspecified; I10 Essential (primary) hypertension; M10.9 Gout, unspecified; I45.10 Unspecified right bundle-branch block; E11.9 Type 2 diabetes mellitus without complications; E66.9 Obesity, unspecified; K44.9 Diaphragmatic hernia without obstruction or gangrene; Z88.6 Allergy status to analgesic agent; Z88.8 Allergy status to other drugs, medicaments and biological substances; Z79.899 Other long term (current) drug therapy
CPT/HCPCS: J2001; J2250; J3010

== ENCOUNTER 2022-05-06 21:00 | Inpatient (IN) | payer BC ==
[~2022-05-06] VITALS: Ht 190.5 cm; Wt 166.5 kg
[~2022-05-06 21:00] MED LIST changes: -BUPIVACAINE 0.25% 30ML SDV ONE; -BUPIVACAINE 0.5%/EPI 30 ML SDV INJ ONE; -FENTANYL CITRATE/PF 100MCG/2 ML INJ ONE; -HYDROCODONE/APAP 7.5MG-325MG 1 EA TAB ONE; -LIDOCAINE HCL 1% LOCAL INJ 20 ML VIAL ONE; -LIDOCAINE JELLY 2% 10ML URO-JET ONE; -MIDAZOLAM HCL 2 MG/2 ML VIAL ONE
[2022-05-06 22:17] VITALS: BP 138/79
[2022-05-06 22:28] VITALS: BP 138/79
[2022-05-06 22:38] VITALS: BP 138/79
[2022-05-06] MEDS ORDERED: HYDRALAZINE HCL 20 MG/ML VIAL IV PRN (23:00)
[2022-05-06] MEDS ORDERED: ACETAMINOPHEN 325 MG TAB PO PRN (23:00)
[2022-05-06] MEDS: ONDANSETRON HCL INJ 2MG/ML 2ML 2 MG/ML VIAL IV PRN (23:18)
[2022-05-06] MEDS: HYDROMORPHONE 1MG/1ML INJ IV PRN (23:19)
[2022-05-06] MEDS: DEXTROSE 5%/0.45% SOD CHL 1,000 ML IV SCH (23:19)
[2022-05-07 00:20] VITALS: BP 142/70
[2022-05-07] MEDS: ONDANSETRON HCL INJ 2MG/ML 2ML 2 MG/ML VIAL IV PRN ×5 (03:32→20:48)
[2022-05-07] MEDS: HYDROMORPHONE 1MG/1ML INJ IV PRN ×5 (03:39→20:48)
[2022-05-07 04:00] VITALS: BP 119/88
[2022-05-07 04:44] LABS: BASOPHILS % 0.2 % (0.0-1.0); EOSINOPHILS # (AUTO) 0.2 (0.0-0.4); EOSINOPHILS % 2.4 % (0.0-6.0); HEMATOCRIT 44.9 % (38.2-49.6); HEMOGLOBIN 14.1 g/dL (14.0-18.0); LYMPHOCYTES # (AUTO) 1.1 (1.0-3.2); LYMPHOCYTES % 13.4 % (18.0-39.1); MEAN CORPUSCULAR HEMOGLOBIN 25.6 pg (28-32); MEAN CORPUSCULAR HGB CONC 31.4 g/dL (31-35); MEAN CORPUSCULAR VOLUME 81.5 fL (81-99); MONOCYTES # (AUTO) 0.7 (0.2-0.8); NEUTROPHILS % 74.6 % (38.7-80.0); PLATELET COUNT 284 x10e3/uL (140-360); RED BLOOD COUNT 5.51 x10e6/uL (4.3-5.7); RED CELL DISTRIBUTION WIDTH 15.9 % (11.7-14.4)
[2022-05-07 05:10] LABS: ALBUMIN 2.7 g/dL (3.5-5.0); ALBUMIN/GLOBULIN RATIO 0.8 (0.8-2.0); ANION GAP 13.9 mmol/L (8-16); CALCIUM 8.6 mg/dL (8.4-10.2); CREATININE, SERUM 1.22 mg/dL (0.72-1.25); POTASSIUM 3.9 mmol/L (3.5-5.1)
[2022-05-07 08:00] VITALS: BP 116/79
[2022-05-07 09:00] VITALS: BP 116/79
[2022-05-07] MEDS: DEXTROSE 5%/0.45% SOD CHL 1,000 ML IV SCH ×2 (09:24→19:02)
[2022-05-07 16:00] VITALS: BP 137/77
[2022-05-07] MEDS: CEFTRIAXONE 2 GM in SODIUM CHLORIDE 0.9% 100 ML IV SCH (18:24)
[2022-05-07 20:00] VITALS: BP 140/77
[2022-05-07] MEDS: ALLOPURINOL 100 MG TAB PO SCH ×2 (20:41→20:43)
[2022-05-08] VITALS: BP 123/75
[2022-05-08] MEDS: HYDROMORPHONE 1MG/1ML INJ IV PRN ×6 (00:25→21:10)
[2022-05-08] MEDS: ONDANSETRON HCL INJ 2MG/ML 2ML 2 MG/ML VIAL IV PRN ×6 (00:28→21:10)
[2022-05-08 04:00] VITALS: BP 123/76
[2022-05-08] MEDS: DEXTROSE 5%/0.45% SOD CHL 1,000 ML IV SCH ×2 (04:28→15:01)
[2022-05-08] MEDS: METHYLPREDNISOLONE SOD SUCC 40 MG/ML VIAL 1ML IV SCH ×3 (05:13→21:09)
[2022-05-08] MEDS ORDERED: KETOROLAC TROMETHAMINE 30 MG/ML VIAL IM SCH (06:45)
[2022-05-08 08:10] VITALS: BP 127/77
[2022-05-08] MEDS: ALLOPURINOL 100 MG TAB PO SCH (08:32)
[2022-05-08] MEDS: CEFTRIAXONE 2 GM in SODIUM CHLORIDE 0.9% 100 ML IV SCH (08:32)
[2022-05-08] MEDS: KETOROLAC TROMETHAMINE 30 MG/ML VIAL IV SCH ×2 (14:06→21:09)
[2022-05-08 16:33] VITALS: BP 152/88
[2022-05-08 20:00] VITALS: BP 128/74
[2022-05-08] MEDS ORDERED: BISACODYL 10 MG SUPP PR ONE (20:00)
[2022-05-09] VITALS (7 sets, daily range): BP systolic 119–148; BP diastolic 64–84
[2022-05-09] MEDS: HYDROMORPHONE 1MG/1ML INJ IV PRN ×6 (02:11→22:42)
[2022-05-09] MEDS: DEXTROSE 5%/0.45% SOD CHL 1,000 ML IV SCH ×3 (02:11→23:33)
[2022-05-09] MEDS: KETOROLAC TROMETHAMINE 30 MG/ML VIAL IV SCH ×3 (05:57→21:24)
[2022-05-09] MEDS: METHYLPREDNISOLONE SOD SUCC 40 MG/ML VIAL 1ML IV SCH ×3 (05:57→21:23)
[2022-05-09] MEDS: ONDANSETRON HCL INJ 2MG/ML 2ML 2 MG/ML VIAL IV PRN ×3 (05:58→22:42)
[2022-05-09] MEDS: ALLOPURINOL 100 MG TAB PO SCH (09:17)
[2022-05-09] MEDS: CEFTRIAXONE 2 GM in SODIUM CHLORIDE 0.9% 100 ML IV SCH (09:17)
[2022-05-09] MEDS ORDERED: BISACODYL 10 MG SUPP PR ONE (20:45)
[2022-05-10] MEDS: ONDANSETRON HCL INJ 2MG/ML 2ML 2 MG/ML VIAL IV PRN ×3 (02:39→10:36)
[2022-05-10] MEDS: HYDROMORPHONE 1MG/1ML INJ IV PRN ×3 (02:40→10:32)
[2022-05-10] MEDS: METHYLPREDNISOLONE SOD SUCC 40 MG/ML VIAL 1ML IV SCH (05:52)
[2022-05-10] MEDS: KETOROLAC TROMETHAMINE 30 MG/ML VIAL IV SCH (05:52)
[2022-05-10 08:48] VITALS: BP 154/84
[2022-05-10 08:55] VITALS: BP 154/84
[2022-05-10] MEDS: CEFTRIAXONE 2 GM in SODIUM CHLORIDE 0.9% 100 ML IV SCH (09:10)
[2022-05-10] MEDS: DEXTROSE 5%/0.45% SOD CHL 1,000 ML IV SCH (09:11)
[2022-05-10] MEDS: ALLOPURINOL 100 MG TAB PO SCH (09:11)
== END 2022-05-10 11:29 | disposition home or self-care (01) | DRG 389 ==
LOC: MED/SURG 21:00
PROVIDERS: ADMIT Internal Medicine; ATTEND Internal Medicine
DX: K56.609 Unspecified intestinal obstruction, unspecified as to partial versus complete obstruction (principal); Z68.42 Body mass index [BMI] 45.0-49.9, adult; M10.9 Gout, unspecified; I12.9 Hypertensive chronic kidney disease with stage 1 through stage 4 chronic kidney disease, or unspecified chronic kidney disease; N18.30 Chronic kidney disease, stage 3 unspecified; Z20.822 Contact with and (suspected) exposure to COVID-19; K21.9 Gastro-esophageal reflux disease without esophagitis; E66.01 Morbid (severe) obesity due to excess calories
CPT/HCPCS: 36415; 74018; 80053; 85025; J0696; J1170; J1885; J2405; J2920; J7050

== ENCOUNTER 2023-11-14 09:50 | Emergency (ER) | payer BC ==
[~2023-11-14] VITALS: Ht 190.5 cm; Wt 166.5 kg
[~2023-11-14 09:50] MED LIST changes: +CEFDINIR300 MG PO; +FLUCONAZOLE100 MG PO
[2023-11-14 09:58] VITALS: TEMP 98.7
[2023-11-14] MEDS ORDERED: SODIUM CHLORIDE FLUSH 10 ML SYR IV PRN (10:45)
[2023-11-14 11:20] LABS: BASOPHILS % 0.2 % (0.0-1.0); HEMATOCRIT 55.3 % (38.2-49.6); LYMPHOCYTES # (AUTO) 1.2 (1.0-3.2); LYMPHOCYTES % 8.9 % (18.0-39.1); MEAN CORPUSCULAR HEMOGLOBIN 26.9 pg (28-32); MEAN CORPUSCULAR HGB CONC 30.7 g/dL (31-35); MEAN CORPUSCULAR VOLUME 87.5 fL (81-99); MONOCYTES # (AUTO) 0.6 (0.2-0.8); MONOCYTES % 4.2 % (4.4-11.3); NEUTROPHILS % 85.8 % (38.7-80.0); PLATELET COUNT 334 x10e3/uL (140-360); RED BLOOD COUNT 6.32 x10e6/uL (4.3-5.7); RED CELL DISTRIBUTION WIDTH 14.6 % (11.7-14.4); WHITE BLOOD COUNT 13.97 x10e3/uL (4.8-10.8)
[2023-11-14 11:45] LABS: ALBUMIN 3.6 g/dL (3.5-5.0); ALBUMIN/GLOBULIN RATIO 1.1 (0.8-2.0); ANION GAP 11.1 mmol/L (8-16); BILIRUBIN,TOTAL 0.3 mg/dL (0.2-1.2); CALCIUM 9.8 mg/dL (8.4-10.2); CREATININE, SERUM 1.14 mg/dL (0.72-1.25); POTASSIUM 5.1 mmol/L (3.5-5.1); TOTAL PROTEIN 6.8 g/dL (6.5-8.1)
[2023-11-14] MEDS ORDERED: KETOROLAC TROMETHAMINE 30 MG/ML VIAL IV ONE (13:00)
[2023-11-14] MEDS ORDERED: IOPAMIDOL 370 MG/ML 100 ML INFUS..BTL INJ ONE (13:09)
[2023-11-14] MEDS: ONDANSETRON HCL INJ 2MG/ML 2ML 2 MG/ML VIAL IV ONE (13:30)
[2023-11-14] MEDS: SODIUM CHLORIDE 0.9% 1000ML 1,000 ML IV ONE (13:30)
[2023-11-14] MEDS: HYDROMORPHONE 1MG/1ML INJ IV STA (13:31)
[2023-11-14 14:36] VITALS: PULSE 84; RESP 16
[2023-11-14] MEDS ORDERED: BENZONATATE100 MG PO (15:10)
[2023-11-14 15:50] VITALS: BP 147/88; PULSE 79; RESP 16; O2SAT 97
== END 2023-11-14 15:46 | disposition home or self-care (01) ==
LOC: ER 10:33
DX: R06.02 Shortness of breath (principal); J06.9 Acute upper respiratory infection, unspecified; R05.9 Cough, unspecified; I45.10 Unspecified right bundle-branch block; Z87.442 Personal history of urinary calculi
CPT/HCPCS: 36415; 71046; 74177; 80053; 83880; 84484; 85025; 85379; 93005; 94760; 99284; J1170; J2405; J7030; Q9967

== ENCOUNTER 2024-02-17 09:17 | Emergency (ER) | payer BC ==
[~2024-02-17] VITALS: Ht 190.5 cm; Wt 166.5 kg
[~2024-02-17 09:17] MED LIST changes: +BENZONATATE100 MG PO
[2024-02-17 09:33] VITALS: TEMP 98.4
[2024-02-17 10:11] LABS: BASOPHILS # (AUTO) 0.1 (0.0-0.1); BASOPHILS % 0.9 % (0.0-1.0); EOSINOPHILS # (AUTO) 0.3 (0.0-0.4); EOSINOPHILS % 4.2 % (0.0-6.0); HEMATOCRIT 52.2 % (38.2-49.6); HEMOGLOBIN 16.6 g/dL (14.0-18.0); LYMPHOCYTES # (AUTO) 1.3 (1.0-3.2); LYMPHOCYTES % 16.5 % (18.0-39.1); MEAN CORPUSCULAR HEMOGLOBIN 27.2 pg (28-32); MEAN CORPUSCULAR HGB CONC 31.8 g/dL (31-35); MEAN CORPUSCULAR VOLUME 85.6 fL (81-99); MONOCYTES # (AUTO) 0.4 (0.2-0.8); MONOCYTES % 5.3 % (4.4-11.3); NEUTROPHILS # (AUTO) 5.7 (2.1-6.9); NEUTROPHILS % 71.7 % (38.7-80.0); PLATELET COUNT 288 x10e3/uL (140-360); RED CELL DISTRIBUTION WIDTH 14.3 % (11.7-14.4); WHITE BLOOD COUNT 7.93 x10e3/uL (4.8-10.8)
[2024-02-17] MEDS: ONDANSETRON HCL INJ 2MG/ML 2ML 2 MG/ML VIAL IV STA (10:13)
[2024-02-17 10:16] LABS: BILIRUBIN,URINE NEGATIVE (NEGATIVE); CLARITY,URINE CLEAR (CLEAR); COLOR,URINE YELLOW (YELLOW); GLUCOSE, URINE 1+ (NEGATIVE); KETONES,URINE NEGATIVE (NEGATIVE); LEUKOCYTE ESTERASE ,URINE NEGATIVE (NEGATIVE); NITRITE,URINE NEGATIVE (NEGATIVE); PH,URINE 5.5 (5 - 7); PROTEIN,URINE DIPSTICK NEGATIVE (NEGATIVE); URINE UROBILINOGEN 0.2 mg/dL (0.2 - 1)
[2024-02-17 10:27] LABS: BACTERIA,URINE MODERATE /HPF; EPITHELIAL CELLS,URINE RARE /LPF; WBC,URINE (MAN) 21-50 /HPF (0-5)
[2024-02-17 10:30] LABS: ALBUMIN 3.5 g/dL (3.5-5.0); ALBUMIN/GLOBULIN RATIO 1.2 (0.8-2.0); ANION GAP 14.1 mmol/L (8-16); BILIRUBIN,TOTAL 0.5 mg/dL (0.2-1.2); CALCIUM 9.4 mg/dL (8.4-10.2); CREATININE, SERUM 1.31 mg/dL (0.72-1.25); POTASSIUM 4.1 mmol/L (3.5-5.1); TOTAL PROTEIN 6.4 g/dL (6.5-8.1)
[2024-02-17] MEDS: SODIUM CHLORIDE 0.9% 1000ML 1,000 ML IV ONE (11:11)
[2024-02-17] MEDS: FENTANYL CITRATE/PF 100MCG/2 ML INJ IV ONE (11:11)
[2024-02-17 11:13] VITALS: PULSE 80; RESP 16; O2SAT 94
[2024-02-17] MEDS ORDERED: CEPHALEXIN500 MG PO (11:25)
== END 2024-02-17 11:55 | disposition home or self-care (01) ==
LOC: ER 09:26
DX: R10.31 Right lower quadrant pain (principal); N39.0 Urinary tract infection, site not specified; M54.50 Low back pain, unspecified; R11.0 Nausea; R19.7 Diarrhea, unspecified; E11.65 Type 2 diabetes mellitus with hyperglycemia; I10 Essential (primary) hypertension; I50.9 Heart failure, unspecified; Z87.442 Personal history of urinary calculi; Z87.19 Personal history of other diseases of the digestive system
CPT/HCPCS: 36415; 74176; 80053; 81001; 83690; 85025; 87086; 99284; J2405; J3010; J7030